=== PATIENT | male | born 1980 | race Two or more races ===

== ENCOUNTER 2020-07-30 12:09 | Inpatient (IN) | payer BC ==
[~2020-07-30] VITALS: Ht 175.3 cm; Wt 143.4 kg
[~2020-07-30 12:09] MED LIST: MORPHINE SULFATE 4 MG/ML VIAL. IV PRN
[2020-07-30 12:25] VITALS: BP 137/80
[2020-07-30] MEDS ORDERED: AMLO-187 PO (12:47)
[2020-07-30] MEDS ORDERED: APIX2.5T PO (12:47)
[2020-07-30] MEDS ORDERED: ACET500T68 PO (12:48)
[2020-07-30 15:00] VITALS: BP 155/69
[2020-07-30] MEDS ORDERED: MORPHINE SULFATE 2 MG/ML VIAL. IV PRN (15:45)
[2020-07-30] MEDS ORDERED: SENNOSIDES 8.6 MG TABLET PO PRN (15:45)
[2020-07-30] MEDS ORDERED: HYDROcodone/APAP 5/325MG 1 TAB TABLET PO PRN (15:45)
[2020-07-30] MEDS ORDERED: ONDANSETRON PF 4 MG/2 ML VIAL. IVP PRN (15:45)
[2020-07-30] MEDS ORDERED: ACETAMINOPHEN 325 MG TABLET. PO PRN (15:45)
[2020-07-30] MEDS ORDERED: DOCUSATE SODIUM 100 MG CAPSULE. PO PRN (15:45)
[2020-07-30] MEDS ORDERED: DEXTROSE 50% 25 GM / 50ML DISP.SYRIN. IV PRN (15:45)
--- NOTE | 2020-07-30 15:50 | PDOC1 ---
History and Physical Date of Service: DOS: DATE: 07/30/20 TIME: 15:44 Chief Complaint: Chief Complain: Cellulitis History of Present Illness: HPI: Patient is a 40-year-old male with history of morbid obesity and DVT diagnosed 1 year ago and is taking Eliquis who was sent from Dr. CORTES office for left lower extremity cellulitis. Patient has been treated with doxycycline and Bactrim for at least 2 weeks and has failed. Cellulitis is gotten worse and there is warmth and redness along the entire left lower extremity. Patient also suffers from chronic lymphedema that has actually worsened after he was diagnosed with DVT. Patient is taking Eliquis and has been compliant with his medications. Denies fevers, chest pain, shortness of breath, abdominal pain, diarrhea, dysuria or open wounds. 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 Allergies: Allergies: Coded Allergies: hydrocodone (Verified Allergy, Intermediate, ibsomnia/itching, 08/30/14) Family History: Family History: Reviewed with no relevant findings Social History: Social History: Denies alcohol, tobacco or drug abuse Current Medications: Current Medications Active Scripts Active Reported Acetaminophen 500 Mg Tablet 1 Tab PO PRN Q4HRS PRN 15 Days Amlodipine Besylate 10 Mg Tablet 10 Mg PO DAILY Eliquis (Apixaban) 2.5 Mg Tablet 2.5 Mg PO BID ROS: Review of Systems Review of System REVIEW OF SYSTEMS: GENERAL: Denies weakness SKIN: No bruising, hair changes or rashes. EYES: No blurred, double or loss of vision. NOSE AND THROAT: No history of nosebleeds, hoarseness or sore throat. HEART: No history of palpitations, chest pain or shortness of breath on exertion. LUNGS: Denies cough, hemoptysis, wheezing or shortness of breath. GASTROINTESTINAL: Denies changes in appetite, nausea, vomiting, diarrhea or constipation. GENITOURINARY: No history of frequency, urgency, hesitancy or nocturia. NEUROLOGIC: Denies history of numbness, tingling, or tremor. PSYCHIATRIC: No history of panic, anxiety or depression. ENDOCRINE: No history of heat or cold intolerance, polyuria or polydipsia. EXTREMITIES: Denies joint pain, pain on walking or stiffness. Physical Exam: Vital Signs: Vital Signs Date Time Temp Pulse Resp B/P (MAP) Pulse Ox O2 Delivery O2 Flow Rate FiO2 07/30/20 15:27 Room Air 07/30/20 12:25 98.6 86 16 137/80 (99) 94 98.6 Physcial Exam: GEN: No apparent distress. Alert and oriented HEENT: Normal cephalic, atraumatic, external auditory canals are patent EYES: Extraocular muscles are intact, pupil are equally round and reactive to light and accommodation MUSCULOSKELETAL: Well developed , well nourished, good range of motion ENDOCRINE: No thyromegaly was palpated LYMPHATICS: No cervical chain or axillary nodes were noted HEMATOPOIETIC: No bruising NECK: Supple, no JVD, no thyromegaly was noted LUNGS: Clear to auscultation in all lung christie without rhonchi or wheezing HEART: RRR, S!, S2 present. Peripheral pulses intact, no obvious murmurs noted ABDOMEN: Soft, nontender. Positive bowel sounds, no organomegaly, normal bowel sounds EXTREMITIES: Without clubbing, cyanosis, or edema. Pedal pulses intact. Negative Homans sign NEUROLOGIC: Normal speech and tone. A&O x 3, moves all extremities, no obvious focal deficits PSYCHIATRIC: Normal affect, normal mood. Stable SKIN: No ulcerations or rashes, good skin turgor, no jaundice VASCULAR: Good capillary refill, neurovascular bundle appears to be intact Labs: Labs: Pending labs Images: Images Pending imaging Assessment/Plan Assessment/Plan Acute left lower extremity cellulitis, failed outpatient p.o. antibiotics Chronic lymphedema in the left lower extremity Morbid obesity Admit to medicine for further management Continue empiric IV antibiotics Pending blood cultures PT OT Lymphedema evaluation by Occupational Therapy Will hold amlodipine due to causes of peripheral edema Eliquis for DVT prophylaxis Cardiac diet Full code Discussed with RN and SW Disposition inpatient management as above Surrogate decision maker is the Justifications for Admission Other Justification Cellulitis ELEONORA DUNCAN MD Jul 30, 2020 15:49
[2020-07-30] MEDS ORDERED: VANCOMYCIN 2 GM in IV NORMAL SALINE 500ML BAG 500 ML IV ONE (16:30)
[2020-07-30 19:35] VITALS: BP 134/63
[2020-07-30] MEDS: VANCOMYCIN PER PHARMACY MC PRN (21:03)
--- NOTE | 2020-07-30 21:03 | NUR ---
Pharmacy Vancomycin Dosing Note S:Consulted to monitor and dose vancomycin started 07/30/20. O:JED MORENO is a 40 year old M with Cellulitis . Height: 5 feet, 9 inches Weight: 143.4 kg Fleming Body Weight: 70.70 Adjusted Body Weight: 99.78 Dosing Weight: Actual Other Antibiotics: LABS: Last BUN: Last Creatinine: Creatinine Clearance: 120 mL/min Last WBC: Last Procalcitonin: Tmax (past 24 hours): Microbiology: I/O: Drug Levels: Last level: on at Last dose given 07/30/20 at 0630 Vancomycin Dosing: Loading Dose: x1 Dosing Weight: Actual Target Trough: 10-20 A: Based on: WEIGHT, CRCL, INDICATION P: 1. INITIATE Vancomycin 2000 mg IV q12h 2. Follow up Trough level on 08/01/20 at 0630 3. Pharmacy will continue to monitor, follow and adjust therapy as needed. GONZALES SHEIKH [facility], 07/30/20 [id number]
[2020-07-30] MEDS: APIXABAN 2.5 MG TABLET. PO SCH (21:31)
[2020-07-30 23:19] VITALS: BP 156/80
[2020-07-31 03:12] VITALS: BP 150/72
[2020-07-31 04:48] LABS: BASO # 0.1 x10^3/uL (0.0-0.2); BASO % 1 % (0-3); EOS # 0.2 x10^3/uL (0.0-0.7); EOS % 3 % (0-3); HEMATOCRIT 35.4 % (39.0-53.0); HEMOGLOBIN 11.7 g/dL (13.0-17.5); LYMPH # 2.1 x10^3/uL (1.0-4.8); LYMPH % 27 % (24-48); MEAN CORPUSCULAR HEMOGLOBIN 26 pg (25-35); MEAN CORPUSCULAR HGB CONC 33 g/dL (31-37); MEAN CORPUSCULAR VOLUME 78 fL (79-100); MONO # 0.7 x10^3/uL (0.0-1.1); MONO % 9 % (0-9); NEUT # 4.7 x10^3/uL (1.8-7.7); NEUT % 60 % (31-73); PLATELET COUNT 440 x10^3/uL (140-400); RED BLOOD COUNT 4.53 x10^6/uL (4.30-5.70); RED CELL DISTRIBUTION WIDTH 16.7 % (11.5-14.5); WHITE BLOOD COUNT 7.8 x10^3/uL (4.0-11.0)
[2020-07-31 05:20] LABS: CALCIUM 8.5 mg/dL (8.5-10.1); CREATININE 0.9 mg/dL (0.7-1.3); GFR 94.4; MAGNESIUM 2.1 mg/dL (1.8-2.4); POTASSIUM 4.1 mmol/L (3.5-5.1)
[2020-07-31] MEDS: VANCOMYCIN 2 GM in IV NORMAL SALINE 500ML BAG 500 ML IV SCH ×2 (06:24→18:22)
[2020-07-31 07:18] VITALS: BP 155/77
[2020-07-31] MEDS: APIXABAN 2.5 MG TABLET. PO SCH ×2 (07:31→21:00)
--- NOTE | 2020-07-31 10:30 | PDOC ---
PROGRESS NOTES Date of Service: DATE: 07/31/20 TIME: 10:30 Chief Complaint Chief Complaint ssessment/Plan Assessment/Plan Acute left lower extremity cellulitis, failed outpatient p.o. antibiotics Chronic lymphedema in the left lower extremity Morbid obesity hypertension plan Admit to medicine Continue empiric IV antibiotics Pending blood cultures PT OT Lymphedema evaluation by Occupational Therapy Will hold amlodipine due to causes of peripheral edema Eliquis for DVT prophylaxis Cardiac diet Full code Discussed with RN Disposition inpatient management as above Surrogate decision maker is the History of Present Illness History of Present Illness Chief Complaint: Chief Complain: Cellulitis History of Present Illness: HPI: Patient is a 40-year-old male with history of morbid obesity and DVT diagnosed 1 year ago and is taking Eliquis who was sent from Dr. CORTES office for left lower extremity cellulitis. Patient has been treated with doxycycline and Bactrim for at least 2 weeks and has failed. Cellulitis is gotten worse and there is warmth and redness along the entire left lower extremity. Patient also suffers from chronic lymphedema that has actually worsened after he was diagnosed with DVT. Patient is taking Eliquis and has been compliant with his medications. Denies fevers, chest pain, shortness of breath, abdominal pain, diarrhea, dysuria or open wounds. 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 Past Medical History Past Medical History: Hypertension Past Surgical History: Other Additional Past Surgical Histo: testicle (as child) Additional Information: Never Smoker Alcohol Use: None Drug Use: None Allergies: Allergies: Coded Allergies: hydrocodone (Verified Allergy, Intermediate, ibsomnia/itching, 08/30/14) Family History: Family History: Reviewed with no relevant findings Social History: Social History: Denies alcohol, tobacco or drug abuse Current Medications: Current Medications Active Scripts Active Reported Acetaminophen 500 Mg Tablet 1 Tab PO PRN Q4HRS PRN 15 Days Amlodipine Besylate 10 Mg Tablet 10 Mg PO DAILY Eliquis (Apixaban) 2.5 Mg Tablet 2.5 Mg PO BID ROS: Review of Systems Review of System REVIEW OF SYSTEMS: GENERAL: Denies weakness SKIN: No bruising, hair changes or rashes. EYES: No blurred, double or loss of vision. NOSE AND THROAT: No history of nosebleeds, hoarseness or sore throat. HEART: No history of palpitations, chest pain or shortness of breath on exertion. LUNGS: Denies cough, hemoptysis, wheezing or shortness of breath. GASTROINTESTINAL: Denies changes in appetite, nausea, vomiting, diarrhea or constipation. GENITOURINARY: No history of frequency, urgency, hesitancy or nocturia. NEUROLOGIC: Denies history of numbness, tingling, or tremor. PSYCHIATRIC: No history of panic, anxiety or depression. ENDOCRINE: No history of heat or cold intolerance, polyuria or polydipsia. EXTREMITIES: Denies joint pain, pain on walking or stiffness. Vitals Vitals Vital Signs Date Time Temp Pulse Resp B/P (MAP) Pulse Ox O2 Delivery O2 Flow Rate FiO2 07/31/20 07:33 Room Air 07/31/20 07:18 98.2 71 18 155/77 (103) 94 98.2 Physical Exam Physical Exam Physcial Exam: GEN: No apparent distress. Alert and oriented HEENT: Normal cephalic, atraumatic, external auditory canals are patent EYES: Extraocular muscles are intact, pupil are equally round and reactive to light and accommodation MUSCULOSKELETAL: Well developed , well nourished, good range of motion ENDOCRINE: No thyromegaly was palpated LYMPHATICS: No cervical chain or axillary nodes were noted HEMATOPOIETIC: No bruising NECK: Supple, no JVD, no thyromegaly was noted LUNGS: Clear to auscultation in all lung christie without rhonchi or wheezing HEART: RRR, S!, S2 present. Peripheral pulses intact, no obvious murmurs noted ABDOMEN: Soft, nontender. Positive bowel sounds, no organomegaly, normal bowel sounds EXTREMITIES: left lower leg cellulitis Negative Homans sign NEUROLOGIC: Normal speech and tone. A&O x 3, moves all extremities, no obvious focal deficits PSYCHIATRIC: Normal affect, normal mood. Stable SKIN: No ulcerations or rashes, good skin turgor, no jaundice VASCULAR: Good capillary refill, neurovascular bundle appears to be intact General: Alert, Oriented X3, Cooperative, No acute distress Heart: Regular rate Lungs: Clear Abdomen: Normal bowel sounds, Soft, No hepatosplenomegaly Extremities: No cyanosis Labs LABS EXAM: Bilateral lower extremity venous Doppler sonogram. HISTORY: Pain and swelling. TECHNIQUE: Portillo scale and color Doppler sonographic evaluation of the bilateral lower extremity veins with spectral waveform analysis was performed. FINDINGS: There is normal color flow, normal compressibility and there are normal spectral waveforms in the common femoral, superficial femoral, popliteal, posterior tibial and greater saphenous veins. There is left lower extremity soft tissue edema. There are prominent lymph nodes within the left inguinal region, the largest of which measures greater than 7.0 cm in long axis. There is relatively slow venous flow within the right popliteal vein. Evaluation for is reflux was not performed. IMPRESSION: 1. No Doppler evidence of lower extremity deep venous thrombosis. 2. Left inguinal lymphadenopathy. Given left lower extremity soft tissue edema, this may be reactive in the setting of cellulitis. Electronically signed by: Bessie Martinez MD (07/31/2020 10:25 AM) [id number] DICTATED and SIGNED BY: BESSIE MARTINEZ MD DATE: 07/31/20 [id number] Laboratory Tests Test 07/31/20 04:00 White Blood Count 7.8 x10^3/uL (4.0-11.0) Red Blood Count 4.53 x10^6/uL (4.30-5.70) Hemoglobin 11.7 g/dL (13.0-17.5) Hematocrit 35.4 % (39.0-53.0) Mean Corpuscular Volume 78 fL (79-100) Mean Corpuscular Hemoglobin 26 pg (25-35) Mean Corpuscular Hemoglobin Concent 33 g/dL (31-37) Red Cell Distribution Width 16.7 % (11.5-14.5) Platelet Count 440 x10^3/uL (140-400) Neutrophils (%) (Auto) 60 % (31-73) Lymphocytes (%) (Auto) 27 % (24-48) Monocytes (%) (Auto) 9 % (0-9) Eosinophils (%) (Auto) 3 % (0-3) Basophils (%) (Auto) 1 % (0-3) Neutrophils # (Auto) 4.7 x10^3/uL (1.8-7.7) Lymphocytes # (Auto) 2.1 x10^3/uL (1.0-4.8) Monocytes # (Auto) 0.7 x10^3/uL (0.0-1.1) Eosinophils # (Auto) 0.2 x10^3/uL (0.0-0.7) Basophils # (Auto) 0.1 x10^3/uL (0.0-0.2) Sodium Level 136 mmol/L (136-145) Potassium Level 4.1 mmol/L (3.5-5.1) Chloride Level 103 mmol/L (98-107) Carbon Dioxide Level 27 mmol/L (21-32) Anion Gap 6 (6-14) Blood Urea Nitrogen 12 mg/dL (8-26) Creatinine 0.9 mg/dL (0.7-1.3) Estimated GFR (Cockcroft-Gault) 94.4 Glucose Level 99 mg/dL (70-99) Calcium Level 8.5 mg/dL (8.5-10.1) Phosphorus Level 5.0 mg/dL (2.6-4.7) Magnesium Level 2.1 mg/dL (1.8-2.4) Comment Review of Relevant I have reviewed the following items lucio (where applicable) has been applied. Labs Laboratory Tests Test 07/31/20 04:00 White Blood Count 7.8 x10^3/uL (4.0-11.0) Red Blood Count 4.53 x10^6/uL (4.30-5.70) Hemoglobin 11.7 g/dL (13.0-17.5) Hematocrit 35.4 % (39.0-53.0) Mean Corpuscular Volume 78 fL (79-100) Mean Corpuscular Hemoglobin 26 pg (25-35) Mean Corpuscular Hemoglobin Concent 33 g/dL (31-37) Red Cell Distribution Width 16.7 % (11.5-14.5) Platelet Count 440 x10^3/uL (140-400) Neutrophils (%) (Auto) 60 % (31-73) Lymphocytes (%) (Auto) 27 % (24-48) Monocytes (%) (Auto) 9 % (0-9) Eosinophils (%) (Auto) 3 % (0-3) Basophils (%) (Auto) 1 % (0-3) Neutrophils # (Auto) 4.7 x10^3/uL (1.8-7.7) Lymphocytes # (Auto) 2.1 x10^3/uL (1.0-4.8) Monocytes # (Auto) 0.7 x10^3/uL (0.0-1.1) Eosinophils # (Auto) 0.2 x10^3/uL (0.0-0.7) Basophils # (Auto) 0.1 x10^3/uL (0.0-0.2) Sodium Level 136 mmol/L (136-145) Potassium Level 4.1 mmol/L (3.5-5.1) Chloride Level 103 mmol/L (98-107) Carbon Dioxide Level 27 mmol/L (21-32) Anion Gap 6 (6-14) Blood Urea Nitrogen 12 mg/dL (8-26) Creatinine 0.9 mg/dL (0.7-1.3) Estimated GFR (Cockcroft-Gault) 94.4 Glucose Level 99 mg/dL (70-99) Calcium Level 8.5 mg/dL (8.5-10.1) Phosphorus Level 5.0 mg/dL (2.6-4.7) Magnesium Level 2.1 mg/dL (1.8-2.4) Laboratory Tests Test 07/31/20 04:00 White Blood Count 7.8 x10^3/uL (4.0-11.0) Red Blood Count 4.53 x10^6/uL (4.30-5.70) Hemoglobin 11.7 g/dL (13.0-17.5) Hematocrit 35.4 % (39.0-53.0) Mean Corpuscular Volume 78 fL (79-100) Mean Corpuscular Hemoglobin 26 pg (25-35) Mean Corpuscular Hemoglobin Concent 33 g/dL (31-37) Red Cell Distribution Width 16.7 % (11.5-14.5) Platelet Count 440 x10^3/uL (140-400) Neutrophils (%) (Auto) 60 % (31-73) Lymphocytes (%) (Auto) 27 % (24-48) Monocytes (%) (Auto) 9 % (0-9) Eosinophils (%) (Auto) 3 % (0-3) Basophils (%) (Auto) 1 % (0-3) Neutrophils # (Auto) 4.7 x10^3/uL (1.8-7.7) Lymphocytes # (Auto) 2.1 x10^3/uL (1.0-4.8) Monocytes # (Auto) 0.7 x10^3/uL (0.0-1.1) Eosinophils # (Auto) 0.2 x10^3/uL (0.0-0.7) Basophils # (Auto) 0.1 x10^3/uL (0.0-0.2) Sodium Level 136 mmol/L (136-145) Potassium Level 4.1 mmol/L (3.5-5.1) Chloride Level 103 mmol/L (98-107) Carbon Dioxide Level 27 mmol/L (21-32) Anion Gap 6 (6-14) Blood Urea Nitrogen 12 mg/dL (8-26) Creatinine 0.9 mg/dL (0.7-1.3) Estimated GFR (Cockcroft-Gault) 94.4 Glucose Level 99 mg/dL (70-99) Calcium Level 8.5 mg/dL (8.5-10.1) Phosphorus Level 5.0 mg/dL (2.6-4.7) Magnesium Level 2.1 mg/dL (1.8-2.4) Medications Current Medications Sennosides (Senna) 17.2 mg PRN BID PRN PO CONSTIPATION; Start 07/30/20 at 15:45 Docusate Sodium (Colace) 100 mg PRN DAILY PRN PO HARD STOOLS; Start 07/30/20 at 15:45 Ondansetron HCl (Zofran) 4 mg PRN Q6HRS PRN IVP NAUSEA/VOMITING; Start 07/30/20 at 15:45 Dextrose (Dextrose 50%-Water Syringe) 12.5 gm PRN Q15MIN PRN IV SEE COMMENTS; Start 07/30/20 at 15:45 Acetaminophen (Tylenol) 650 mg PRN Q4HRS PRN PO TEMP OVER 100.4F OR MILD PAIN; Start 07/30/20 at 15:45 Vancomycin HCl (Vanco Per Pharmacy) 1 each PRN DAILY PRN MC SEE COMMENTS Last administered on 07/30/20at 21:03; Start 07/30/20 at 15:45 Acetaminophen/ Hydrocodone Bitart (Lortab 5/325) 1 tab PRN Q4HRS PRN PO MILD PAIN 1-3; Start 07/30/20 at 15:45 Morphine Sulfate (Morphine Sulfate) 1 mg PRN Q1HR PRN IV PAIN MILD TO MOD; Start 07/30/20 at 15:45 Morphine Sulfate (Morphine Sulfate) 2 mg PRN Q2HR PRN IV SEVERE PAIN 7-10; Start 07/30/20 at 04:00; Stop 07/31/20 at 03:59; Status DC Vancomycin HCl 2 gm/Sodium Chloride 500 ml @ 250 mls/hr 1X ONCE IV Last administered on 07/30/20at 18:57; Start 07/30/20 at 16:30; Stop 07/30/20 at 18:29; Status DC Apixaban (Eliquis) 2.5 mg BID PO Last administered on 07/31/20at 07:31; Start 07/30/20 at 21:00 Info (Anti-Coagulation Monitoring By Pharmacy) 1 each PRN DAILY PRN MC SEE COMMENTS; Start 07/30/20 at 16:00 Vancomycin HCl 2 gm/Sodium Chloride 500 ml @ 250 mls/hr Q12H IV Last administered on 07/31/20at 06:24; Start 07/31/20 at 07:00 Vancomycin HCl (Vancomycin Trough Level) 1 each 1X ONCE MC ; Start 08/01/20 at 06:30; Stop 08/01/20 at 06:31 Active Scripts Active Reported Acetaminophen 500 Mg Tablet 1 Tab PO PRN Q4HRS PRN 15 Days Amlodipine Besylate 10 Mg Tablet 10 Mg PO DAILY Eliquis (Apixaban) 2.5 Mg Tablet 2.5 Mg PO BID Vitals/I & O Vital Sign - Last 24 Hours 07/30/20 07/30/20 07/30/20 07/30/20 12:25 15:00 15:27 19:35 Temp 98.6 98.0 99.8 98.6 98.0 99.8 Pulse 86 78 84 Resp 16 18 18 B/P (MAP) 137/80 (99) 155/69 (97) 134/63 (86) Pulse Ox 94 96 93 O2 Delivery Room Air Room Air Room Air Room Air 07/30/20 07/30/20 07/31/20 07/31/20 19:45 23:19 03:12 07:18 Temp 99.4 98.2 98.2 99.4 98.2 98.2 Pulse 81 61 71 Resp 18 18 18 B/P (MAP) 156/80 (105) 150/72 (98) 155/77 (103) Pulse Ox 91 94 94 O2 Delivery Room Air Room Air Room Air Room Air 07/31/20 07:33 O2 Delivery Room Air Intake and Output 07/30/20 07/30/20 07/31/20 15:00 23:00 07:00 Intake Total 240 ml 360 ml Balance 240 ml 360 ml Justicifation of Admission Dx: Justifications for Admission: Justification of Admission Dx: Yes Cellulitis: Cellulitis DENISSE TOMLIN MD Jul 31, 2020 10:30
[2020-07-31 11:00] VITALS: BP 166/78
[2020-07-31] MEDS: ANTI-COAG MONITOR BY PHARMACY. MC PRN (14:20)
[2020-07-31] MEDS: VANCOMYCIN PER PHARMACY MC PRN (14:26)
[2020-07-31 15:00] VITALS: BP 157/55
[2020-07-31] MEDS: LISINOPRIL 5 MG TABLET. PO SCH (18:22)
[2020-07-31 19:54] VITALS: BP 161/73
[2020-07-31 23:55] VITALS: BP 160/74
[2020-08-01 03:15] VITALS: BP 160/79
[2020-08-01] MEDS: VANCOMYCIN 2 GM in IV NORMAL SALINE 500ML BAG 500 ML IV SCH ×2 (06:07→21:03)
[2020-08-01 07:00] VITALS: BP 153/93
[2020-08-01] MEDS: LISINOPRIL 5 MG TABLET. PO SCH ×2 (07:49→16:36)
[2020-08-01] MEDS: APIXABAN 2.5 MG TABLET. PO SCH ×2 (07:49→20:41)
[2020-08-01 08:05] LABS: BASO % 1 % (0-3); EOS # 0.2 x10^3/uL (0.0-0.7); EOS % 3 % (0-3); HEMATOCRIT 35.5 % (39.0-53.0); HEMOGLOBIN 11.6 g/dL (13.0-17.5); LYMPH # 1.6 x10^3/uL (1.0-4.8); LYMPH % 22 % (24-48); MEAN CORPUSCULAR HEMOGLOBIN 26 pg (25-35); MEAN CORPUSCULAR HGB CONC 33 g/dL (31-37); MEAN CORPUSCULAR VOLUME 78 fL (79-100); MONO # 0.4 x10^3/uL (0.0-1.1); MONO % 6 % (0-9); NEUT % 68 % (31-73); PLATELET COUNT 452 x10^3/uL (140-400); RED BLOOD COUNT 4.53 x10^6/uL (4.30-5.70); RED CELL DISTRIBUTION WIDTH 16.8 % (11.5-14.5); WHITE BLOOD COUNT 7.3 x10^3/uL (4.0-11.0)
[2020-08-01 08:25] LABS: CALCIUM 8.8 mg/dL (8.5-10.1); CREATININE 0.7 mg/dL (0.7-1.3); GFR 126.2
[2020-08-01 08:42] LABS: VANC TR 29.6 mcg/mL (10.0-20.0)
[2020-08-01 11:00] VITALS: BP 161/85
--- NOTE | 2020-08-01 11:05 | PDOC ---
PROGRESS NOTES Date of Service: DATE: 08/01/20 TIME: 11:04 Chief Complaint Chief Complaint ssessment/Plan Assessment/Plan Acute left lower extremity cellulitis, failed outpatient p.o. antibiotics Chronic lymphedema in the left lower extremity Morbid obesity hypertension plan Admit to medicine ct left leg ID CONSULT Continue empiric IV antibiotics, VANC Pending blood cultures PT OT Lymphedema evaluation by Occupational Therapy Will hold amlodipine due to causes of peripheral edema Eliquis for DVT prophylaxis Cardiac diet Full code Discussed with RN Disposition inpatient management as above Surrogate decision maker is the History of Present Illness History of Present Illness Chief Complaint: Chief Complain: Cellulitis History of Present Illness: HPI: Patient is a 40-year-old male with history of morbid obesity and DVT diagnosed 1 year ago and is taking Eliquis who was sent from Dr. CORTES office for left lo wer extremity cellulitis. Patient has been treated with doxycycline and Bactrim for at least 2 weeks and has failed. Cellulitis is gotten worse and there is warmth and redness along the entire left lower extremity. Patient also suffers from chronic lymphedema that has actually worsened after he was diagnosed with DVT. Patient is taking Eliquis and has been compliant with his medications. Denies fevers, chest pain, shortness of breath, abdominal pain, diarrhea, dysuria or open wounds. 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 Past Medical History Past Medical History: Hypertension Past Surgical History: Other Additional Past Surgical Histo: testicle (as child) Additional Information: Never Smoker Alcohol Use: None Drug Use: None Allergies: Allergies: Coded Allergies: hydrocodone (Verified Allergy, Intermediate, ibsomnia/itching, 08/30/14) Family History: Family History: Reviewed with no relevant findings Social History: Social History: Denies alcohol, tobacco or drug abuse Current Medications: Current Medications Active Scripts Active Reported Acetaminophen 500 Mg Tablet 1 Tab PO PRN Q4HRS PRN 15 Days Amlodipine Besylate 10 Mg Tablet 10 Mg PO DAILY Eliquis (Apixaban) 2.5 Mg Tablet 2.5 Mg PO BID ROS: Review of Systems Review of System REVIEW OF SYSTEMS: GENERAL: Denies weakness SKIN: No bruising, hair changes or rashes. EYES: No blurred, double or loss of vision. NOSE AND THROAT: No history of nosebleeds, hoarseness or sore throat. HEART: No history of palpitations, chest pain or shortness of breath on exertion. LUNGS: Denies cough, hemoptysis, wheezing or shortness of breath. GASTROINTESTINAL: Denies changes in appetite, nausea, vomiting, diarrhea or constipation. GENITOURINARY: No history of frequency, urgency, hesitancy or nocturia. NEUROLOGIC: Denies history of numbness, tingling, or tremor. PSYCHIATRIC: No history of panic, anxiety or depression. ENDOCRINE: No history of heat or cold intolerance, polyuria or polydipsia. EXTREMITIES: Denies joint pain, pain on walking or stiffness. Vitals Vitals Vital Signs Date Time Temp Pulse Resp B/P (MAP) Pulse Ox O2 Delivery O2 Flow Rate FiO2 08/01/20 08:00 Room Air 08/01/20 07:49 80 153/93 08/01/20 07:00 98.8 18 92 98.8 Physical Exam Physical Exam Physcial Exam: GEN: No apparent distress. Alert and oriented HEENT: Normal cephalic, atraumatic, external auditory canals are patent EYES: Extraocular muscles are intact, pupil are equally round and reactive to light and accommodation MUSCULOSKELETAL: Well developed , well nourished, good range of motion ENDOCRINE: No thyromegaly was palpated LYMPHATICS: No cervical chain or axillary nodes were noted HEMATOPOIETIC: No bruising NECK: Supple, no JVD, no thyromegaly was noted LUNGS: Clear to auscultation in all lung christie without rhonchi or wheezing HEART: RRR, S!, S2 present. Peripheral pulses intact, no obvious murmurs noted ABDOMEN: Soft, nontender. Positive bowel sounds, no organomegaly, normal bowel sounds EXTREMITIES: left lower leg cellulitis Negative Homans sign NEUROLOGIC: Normal speech and tone. A&O x 3, moves all extremities, no obvious focal deficits PSYCHIATRIC: Normal affect, normal mood. Stable SKIN: No ulcerations or rashes, good skin turgor, no jaundice VASCULAR: Good capillary refill, neurovascular bundle appears to be intact General: Alert, Oriented X3, Cooperative, No acute distress Heart: Regular rate Lungs: Clear Abdomen: Normal bowel sounds, Soft, No hepatosplenomegaly Extremities: No cyanosis, Other (MODERATE DIFFUSE ST SWELLING OF WHOLE LEFT LEG) Labs LABS SPEC #: [id number] HARVEY: 07/31/20 STATUS: RES REQ #: [id number] RECD: 07/31/[address] [facility] [address]: ELEONORA DUNCAN MD SOURCE: BLOOD ENTR: 07/30/20-[address] [facility] [address]: JAYY CORTES [facility]: ORDERED: BCULT Procedure Result BLOOD CULTURE Preliminary NO GROWTH AFTER 1 DAY Signed PATIENT: JED MORENO ACCOUNT: [id number] : 1980 LOCATION: [facility] AGE: 40 SEX: M EXAM STATUS: ADM IN ORD. PHYSICIAN: ELEONORA DUNCAN MD REASON: dvt and swelling PROCEDURE: VENOUS LOWER EXT BILATERAL EXAM: Bilateral lower extremity venous Doppler sonogram. HISTORY: Pain and swelling. TECHNIQUE: Portillo scale and color Doppler sonographic evaluation of the bilateral lower extremity veins with spectral waveform analysis was performed. FINDINGS: There is normal color flow, normal compressibility and there are normal spectral waveforms in the common femoral, superficial femoral, popliteal, posterior tibial and greater saphenous veins. There is left lower extremity soft tissue edema. There are prominent lymph nodes within the left inguinal region, the largest of which measures greater than 7.0 cm in long axis. There is relatively slow venous flow within the right popliteal vein. Evaluation for is reflux was not performed. IMPRESSION: 1. No Doppler evidence of lower extremity deep venous thrombosis. 2. Left inguinal lymphadenopathy. Given left lower extremity soft tissue edema, this may be reactive in the setting of cellulitis. Electronically signed by: Bessie Martinez MD (07/31/2020 10:25 AM) [id number] DICTATED and SIGNED BY: BESSIE MARTINEZ MD DATE: 07/31/20 [id number] Laboratory Tests Test 08/01/20 06:45 08/01/20 06:48 Sodium Level 136 mmol/L (136-145) Potassium Level 4.0 mmol/L (3.5-5.1) Chloride Level 101 mmol/L (98-107) Carbon Dioxide Level 27 mmol/L (21-32) Anion Gap 8 (6-14) Blood Urea Nitrogen 9 mg/dL (8-26) Creatinine 0.7 mg/dL (0.7-1.3) Estimated GFR (Cockcroft-Gault) 126.2 Glucose Level 95 mg/dL (70-99) Calcium Level 8.8 mg/dL (8.5-10.1) Vancomycin Level Trough 29.6 mcg/mL (10.0-20.0) Vancomycin Last Dose Date 07/31/20 Vancomycin Last Dose Time 1900 White Blood Count 7.3 x10^3/uL (4.0-11.0) Red Blood Count 4.53 x10^6/uL (4.30-5.70) Hemoglobin 11.6 g/dL (13.0-17.5) Hematocrit 35.5 % (39.0-53.0) Mean Corpuscular Volume 78 fL (79-100) Mean Corpuscular Hemoglobin 26 pg (25-35) Mean Corpuscular Hemoglobin Concent 33 g/dL (31-37) Red Cell Distribution Width 16.8 % (11.5-14.5) Platelet Count 452 x10^3/uL (140-400) Neutrophils (%) (Auto) 68 % (31-73) Lymphocytes (%) (Auto) 22 % (24-48) Monocytes (%) (Auto) 6 % (0-9) Eosinophils (%) (Auto) 3 % (0-3) Basophils (%) (Auto) 1 % (0-3) Neutrophils # (Auto) 5.0 x10^3/uL (1.8-7.7) Lymphocytes # (Auto) 1.6 x10^3/uL (1.0-4.8) Monocytes # (Auto) 0.4 x10^3/uL (0.0-1.1) Eosinophils # (Auto) 0.2 x10^3/uL (0.0-0.7) Basophils # (Auto) 0.0 x10^3/uL (0.0-0.2) Comment Review of Relevant I have reviewed the following items lucio (where applicable) has been applied. Labs Laboratory Tests Test 07/31/20 04:00 08/01/20 06:45 08/01/20 06:48 White Blood Count 7.8 x10^3/uL (4.0-11.0) 7.3 x10^3/uL (4.0-11.0) Red Blood Count 4.53 x10^6/uL (4.30-5.70) 4.53 x10^6/uL (4.30-5.70) Hemoglobin 11.7 g/dL (13.0-17.5) 11.6 g/dL (13.0-17.5) Hematocrit 35.4 % (39.0-53.0) 35.5 % (39.0-53.0) Mean Corpuscular Volume 78 fL (79-100) 78 fL (79-100) Mean Corpuscular Hemoglobin 26 pg (25-35) 26 pg (25-35) Mean Corpuscular Hemoglobin Concent 33 g/dL (31-37) 33 g/dL (31-37) Red Cell Distribution Width 16.7 % (11.5-14.5) 16.8 % (11.5-14.5) Platelet Count 440 x10^3/uL (140-400) 452 x10^3/uL (140-400) Neutrophils (%) (Auto) 60 % (31-73) 68 % (31-73) Lymphocytes (%) (Auto) 27 % (24-48) 22 % (24-48) Monocytes (%) (Auto) 9 % (0-9) 6 % (0-9) Eosinophils (%) (Auto) 3 % (0-3) 3 % (0-3) Basophils (%) (Auto) 1 % (0-3) 1 % (0-3) Neutrophils # (Auto) 4.7 x10^3/uL (1.8-7.7) 5.0 x10^3/uL (1.8-7.7) Lymphocytes # (Auto) 2.1 x10^3/uL (1.0-4.8) 1.6 x10^3/uL (1.0-4.8) Monocytes # (Auto) 0.7 x10^3/uL (0.0-1.1) 0.4 x10^3/uL (0.0-1.1) Eosinophils # (Auto) 0.2 x10^3/uL (0.0-0.7) 0.2 x10^3/uL (0.0-0.7) Basophils # (Auto) 0.1 x10^3/uL (0.0-0.2) 0.0 x10^3/uL (0.0-0.2) Sodium Level 136 mmol/L (136-145) 136 mmol/L (136-145) Potassium Level 4.1 mmol/L (3.5-5.1) 4.0 mmol/L (3.5-5.1) Chloride Level 103 mmol/L (98-107) 101 mmol/L (98-107) Carbon Dioxide Level 27 mmol/L (21-32) 27 mmol/L (21-32) Anion Gap 6 (6-14) 8 (6-14) Blood Urea Nitrogen 12 mg/dL (8-26) 9 mg/dL (8-26) Creatinine 0.9 mg/dL (0.7-1.3) 0.7 mg/dL (0.7-1.3) Estimated GFR (Cockcroft-Gault) 94.4 126.2 Glucose Level 99 mg/dL (70-99) 95 mg/dL (70-99) Calcium Level 8.5 mg/dL (8.5-10.1) 8.8 mg/dL (8.5-10.1) Phosphorus Level 5.0 mg/dL (2.6-4.7) Magnesium Level 2.1 mg/dL (1.8-2.4) Vancomycin Level Trough 29.6 mcg/mL (10.0-20.0) Vancomycin Last Dose Date 07/31/20 Vancomycin Last Dose Time 190 Laboratory Tests Test 08/01/20 06:45 08/01/20 06:48 Sodium Level 136 mmol/L (136-145) Potassium Level 4.0 mmol/L (3.5-5.1) Chloride Level 101 mmol/L (98-107) Carbon Dioxide Level 27 mmol/L (21-32) Anion Gap 8 (6-14) Blood Urea Nitrogen 9 mg/dL (8-26) Creatinine 0.7 mg/dL (0.7-1.3) Estimated GFR (Cockcroft-Gault) 126.2 Glucose Level 95 mg/dL (70-99) Calcium Level 8.8 mg/dL (8.5-10.1) Vancomycin Level Trough 29.6 mcg/mL (10.0-20.0) Vancomycin Last Dose Date 07/31/20 Vancomycin Last Dose Time 190 White Blood Count 7.3 x10^3/uL (4.0-11.0) Red Blood Count 4.53 x10^6/uL (4.30-5.70) Hemoglobin 11.6 g/dL (13.0-17.5) Hematocrit 35.5 % (39.0-53.0) Mean Corpuscular Volume 78 fL (79-100) Mean Corpuscular Hemoglobin 26 pg (25-35) Mean Corpuscular Hemoglobin Concent 33 g/dL (31-37) Red Cell Distribution Width 16.8 % (11.5-14.5) Platelet Count 452 x10^3/uL (140-400) Neutrophils (%) (Auto) 68 % (31-73) Lymphocytes (%) (Auto) 22 % (24-48) Monocytes (%) (Auto) 6 % (0-9) Eosinophils (%) (Auto) 3 % (0-3) Basophils (%) (Auto) 1 % (0-3) Neutrophils # (Auto) 5.0 x10^3/uL (1.8-7.7) Lymphocytes # (Auto) 1.6 x10^3/uL (1.0-4.8) Monocytes # (Auto) 0.4 x10^3/uL (0.0-1.1) Eosinophils # (Auto) 0.2 x10^3/uL (0.0-0.7) Basophils # (Auto) 0.0 x10^3/uL (0.0-0.2) Microbiology 07/31/20 Blood Culture - Preliminary, Resulted NO GROWTH AFTER 1 DAY Medications Current Medications Sennosides (Senna) 17.2 mg PRN BID PRN PO CONSTIPATION; Start 07/30/20 at 15:45 Docusate Sodium (Colace) 100 mg PRN DAILY PRN PO HARD STOOLS; Start 07/30/20 at 15:45 Ondansetron HCl (Zofran) 4 mg PRN Q6HRS PRN IVP NAUSEA/VOMITING; Start 07/30/20 at 15:45 Dextrose (Dextrose 50%-Water Syringe) 12.5 gm PRN Q15MIN PRN IV SEE COMMENTS; Start 07/30/20 at 15:45 Acetaminophen (Tylenol) 650 mg PRN Q4HRS PRN PO TEMP OVER 100.4F OR MILD PAIN; Start 07/30/20 at 15:45 Vancomycin HCl (Vanco Per Pharmacy) 1 each PRN DAILY PRN MC SEE COMMENTS Last administered on 07/31/20at 14:26; Start 07/30/20 at 15:45 Acetaminophen/ Hydrocodone Bitart (Lortab 5/325) 1 tab PRN Q4HRS PRN PO MILD PAIN 1-3; Start 07/30/20 at 15:45 Morphine Sulfate (Morphine Sulfate) 1 mg PRN Q1HR PRN IV PAIN MILD TO MOD; Start 07/30/20 at 15:45 Morphine Sulfate (Morphine Sulfate) 2 mg PRN Q2HR PRN IV SEVERE PAIN 7-10; Start 07/30/20 at 04:00; Stop 07/31/20 at 03:59; Status DC Vancomycin HCl 2 gm/Sodium Chloride 500 ml @ 250 mls/hr 1X ONCE IV Last administered on 07/30/20at 18:57; Start 07/30/20 at 16:30; Stop 07/30/20 at 18:29; Status DC Apixaban (Eliquis) 2.5 mg BID PO Last administered on 08/01/20at 07:49; Start 07/30/20 at 21:00 Info (Anti-Coagulation Monitoring By Pharmacy) 1 each PRN DAILY PRN MC SEE COMMENTS Last administered on 07/31/20at 14:20; Start 07/30/20 at 16:00 Vancomycin HCl 2 gm/Sodium Chloride 500 ml @ 250 mls/hr Q12H IV Last administered on 08/01/20at 06:07; Start 07/31/20 at 07:00 Vancomycin HCl (Vancomycin Trough Level) 1 each 1X ONCE MC Last administered on 08/01/20at 06:30; Start 08/01/20 at 06:30; Stop 08/01/20 at 06:31; Status DC Lisinopril (Prinivil) 2.5 mg [id number] PO Last administered on 08/01/20at 07:49; Start 07/31/20 at 16:30 Active Scripts Active Reported Acetaminophen 500 Mg Tablet 1 Tab PO PRN Q4HRS PRN 15 Days Amlodipine Besylate 10 Mg Tablet 10 Mg PO DAILY Eliquis (Apixaban) 2.5 Mg Tablet 2.5 Mg PO BID Vitals/I & O Vital Sign - Last 24 Hours 07/31/20 07/31/20 07/31/20 07/31/20 15:00 18:22 19:54 20:00 Temp 98.2 96.6 98.2 96.6 Pulse 77 77 82 Resp 18 20 B/P (MAP) 157/55 (89) 157/55 161/73 (102) Pulse Ox 94 93 O2 Delivery Room Air Room Air Room Air 07/31/20 08/01/20 08/01/20 08/01/20 23:55 03:15 07:00 07:49 Temp 96.4 99.0 98.8 96.4 99.0 98.8 Pulse 74 76 80 80 Resp 20 18 18 B/P (MAP) 160/74 (102) 160/79 (106) 153/93 (113) 153/93 Pulse Ox 88 90 92 O2 Delivery Room Air Room Air Room Air 08/01/20 08:00 O2 Delivery Room Air Intake and Output 07/31/20 07/31/20 08/01/20 15:00 23:00 07:00 Intake Total 400 ml 400 ml Balance 400 ml 400 ml Justicifation of Admission Dx: Justifications for Admission: Justification of Admission Dx: Yes Cellulitis: Cellulitis DENISSE TOMLIN MD Aug 01, 2020 11:05
[2020-08-01] MEDS: VANCOMYCIN PER PHARMACY MC PRN ×3 (11:54→20:07)
[2020-08-01] MEDS: ANTI-COAG MONITOR BY PHARMACY. MC PRN (12:09)
[2020-08-01 15:00] VITALS: BP 142/74
[2020-08-01] MEDS ORDERED: ACETAMINOPHEN 500 MG TABLET PO PRN (17:30)
[2020-08-01] MEDS: amLODIPine BESYLATE 10 MG TABLET PO SCH (17:35)
--- NOTE | 2020-08-01 17:35 | NUR ---
Norvasc non-admin Lisinopril given 1 hour prior to scheduled time.
[2020-08-01 19:00] VITALS: BP 156/80
[2020-08-01 19:27] LABS: VANC TR 12.4 mcg/mL (10.0-20.0)
--- NOTE | 2020-08-01 20:07 | NUR ---
Pharmacy Vancomycin Dosing Note S:Consulted to monitor and dose vancomycin started 07/30/20. O:JED MORENO is a 40 year old M with Cellulitis . Height: 5 feet, 9 inches Weight: 143.4 kg [place] Body Weight: 70.70 Adjusted Body Weight: 99.78 Dosing Weight: Actual Other Antibiotics: LABS: Last BUN: 12 Last Creatinine: 0.9 Creatinine Clearance: >100 mL/min Last WBC: 7.8 Last Procalcitonin: Tmax (past 24 hours): 99.4 Microbiology: I/O: 600/- Drug Levels: Last Trough level: 12.4 on 08/01/20 at 1835 Last dose given 08/01/20 at 0607 Vancomycin Dosing: Loading Dose: x1 Dosing Weight: Actual Target Trough: 10-20 A: Based on: THERAPEUTIC TROUGH FOR INDICATION, P: 1. CONTINUE Vancomycin 2000 mg IV q12h 2. Follow up Trough level NEEDED 3. Pharmacy will continue to monitor, follow and adjust therapy as needed. GONZALES SHEIKH [facility], 08/01/202006
[2020-08-01] MEDS: LACTOBACILLUS RHAMNOSUS GG 1 CAPSULE. PO SCH (20:41)
[2020-08-01 23:00] VITALS: BP 149/67
[2020-08-02 03:00] VITALS: BP 157/71
[2020-08-02] MEDS: VANCOMYCIN 2 GM in IV NORMAL SALINE 500ML BAG 500 ML IV SCH (05:43)
[2020-08-02 07:21] VITALS: BP 165/76
[2020-08-02 07:40] LABS: BASO % 0 % (0-3); EOS # 0.2 x10^3/uL (0.0-0.7); EOS % 3 % (0-3); HEMATOCRIT 35.8 % (39.0-53.0); HEMOGLOBIN 11.7 g/dL (13.0-17.5); LYMPH # 1.6 x10^3/uL (1.0-4.8); LYMPH % 22 % (24-48); MEAN CORPUSCULAR HEMOGLOBIN 26 pg (25-35); MEAN CORPUSCULAR HGB CONC 33 g/dL (31-37); MEAN CORPUSCULAR VOLUME 78 fL (79-100); MONO # 0.4 x10^3/uL (0.0-1.1); MONO % 6 % (0-9); NEUT # 5.2 x10^3/uL (1.8-7.7); NEUT % 70 % (31-73); PLATELET COUNT 428 x10^3/uL (140-400); RED CELL DISTRIBUTION WIDTH 16.6 % (11.5-14.5); WHITE BLOOD COUNT 7.5 x10^3/uL (4.0-11.0)
[2020-08-02] MEDS ORDERED: IOHEXOL 240 MG/ML 50ML VIAL. PO ONE (08:00)
[2020-08-02] MEDS ORDERED: CONTRAST GIVEN. MC PRN (08:00)
[2020-08-02] MEDS: LISINOPRIL 5 MG TABLET. PO SCH ×2 (09:00→17:09)
[2020-08-02] MEDS: LACTOBACILLUS RHAMNOSUS GG 1 CAPSULE. PO SCH ×2 (09:00→20:20)
[2020-08-02] MEDS: APIXABAN 2.5 MG TABLET. PO SCH ×2 (09:00→20:20)
[2020-08-02] MEDS: amLODIPine BESYLATE 10 MG TABLET PO SCH (09:00)
--- NOTE | 2020-08-02 10:33 | RAD ---
EXAM: CT Abdomen and Pelvis without IV contrast INDICATION: Reason: LEFT LEG SWELLING / Spl. Instructions: / History: TECHNIQUE: Multi-detector row CT images were acquired from the lung bases through the abdomen and pel vis without the use of IV contrast. Sagittal and coronal images were acquired from the transaxial shanel a. All CT scans performed at this facility utilize dose optimization techniques as appropriate to the exam, including the following: Automated exposure control and adjustment of the mA and/or KV accordi ng to patient size (this includes techniques or standardized protocols for targeted exams where dose is indication/reason for exam). ORAL CONTRAST: Administered COMPARISON: CT left lower extremity without IV contrast obtained the same day FINDINGS: The absence of IV contrast limits evaluation of soft tissue pathology. LOWER CHEST: Unremarkable LIVER: Unremarkable BILIARY SYSTEM: Gallbladder is unremarkable. Bile ducts are not dilated. PANCREAS: Unremarkable SPLEEN: Unremarkable ADRENALS: Unremarkable KIDNEYS & URETERS: Bilateral subtle perirenal soft tissue stranding is present without hydronephrosi s or hydroureter. No radiopaque kidney stones. BLADDER: Unremarkable REPRODUCTIVE ORGANS: Unremarkable GASTROINTESTINAL: Oral contrast opacifies the small bowel but does not opacify the large bowel the ti me of imaging. There is rectal fecal distention to transverse diameter of 6.5 cm. The appendix is nor mal. MESENTERY/PERITONEUM/RETROPERITONEUM: Unremarkable VASCULAR: Unremarkable LYMPH NODES: A 4 cm left external iliac lymph node is present with soft tissue stranding in its fatt y hilum. Additional enlarged left superficial and deep inguinal lymph nodes are present, associated w ith soft tissue stranding and skin thickening in the partially visualized proximal left thigh. OSSEOUS & SOFT TISSUES: No acute osseous abnormality. Acute inflammatory changes in the proximal lef t thigh are partially imaged. There are some prominent superficial varices along the left abdominal w all from the femoral veins to the internal mammary and lower left intercostal veins. IMPRESSION: Left lower extremity and pelvic adenopathy with findings of cellulitis in the proximal partially imag ed left thigh. No central obstructing mass to explain left leg swelling. EXAM: CT left lower extremity INDICATION: Reason: LEFT LEG SWELLING / Spl. Instructions: / History: TECHNIQUE: Helical CT of the leg from the top of the left acetabulum through the left foot was obtain ed without IV contrast and reviewed in multiplanar reformats. All CT scans performed at this facility utilize dose optimization techniques as appropriate to the exam, including the following: Automated exposure control and adjustment of the mA and/or KV according to patient size (this includes techniqu es or standardized protocols for targeted exams where dose is indication/reason for exam). IV CONTRAST: Administered COMPARISON: None FINDINGS: Exuberant lymphadenopathy is present in the left groin, largest cluster of nodes measuring 5.7 cm felisha meter long axis by 2.8 cm short axis. There is exuberant soft tissue stranding and skin thickening in the anterior left thigh. There is cassie e fluid surrounding the iliotibial band. Soft tissue stranding is circumferential calcified extends to the left foot. No abnormal soft tissue gas There is a joint effusion with multiple loose bodies in the medial compartment. No acute fracture or aggressive appearing bony lesions. Tricompartmental degenerative changes with os teophytic spurring of the medial and lateral femoral condyles and on lateral tibial plateau and [place] la. No bony erosions or marrow lucencies suspicious for an intraosseous fluid collection. IMPRESSION: Exuberant cellulitis involving the entirety of the left lower extremity from foot to hip and bulky ad enopathy in the groin. No abnormal soft tissue gas that would increase the likelihood of necrotizing fasciitis but this is a clinical diagnosis and should be considered in the differential diagnosis of these findings. Electronically signed by: Elyse Lewis MD (08/02/2020 10:31 AM) [id number]
[2020-08-02 11:20] VITALS: BP 163/69
[2020-08-02 11:28] LABS: CREATININE 0.8 mg/dL (0.7-1.3); GFR 108.2
--- NOTE | 2020-08-02 11:40 | NUR ---
SW following. Discussed with RN, pt from home with family, room air, cardiac diet. Pt having a CT of abdomen. Lymphedema OT consulted. Pt can visit an outpatient lymphedema clinic after discharge, if needing further care. RN advised no SW needs at this time, anticipates pt may be able to discharge home today. SW will continue to follow.
[2020-08-02] MEDS: ANTI-COAG MONITOR BY PHARMACY. MC PRN (13:09)
--- NOTE | 2020-08-02 13:14 | PDOC ---
PROGRESS NOTES Date of Service: DATE: 08/02/20 TIME: 13:12 Chief Complaint Chief Complaint ssessment/Plan Assessment/Plan Acute left lower extremity cellulitis, failed outpatient p.o. antibiotics Chronic lymphedema in the left lower extremity Morbid obesity hypertension plan Admit to medicine ct left leg ID CONSULT Continue empiric IV antibiotics, VANC Pending blood cultures PT OT Lymphedema evaluation by Occupational Therapy Will hold amlodipine due to causes of peripheral edema Eliquis for DVT prophylaxis Cardiac diet Full code Discussed with RN Disposition inpatient management as above Surrogate decision maker is the History of Present Illness History of Present Illness Dylon is a 40-year-old male with left leg lymphedema after DVT rupture, and amdit with acute left lower extremity cellulitis. Patient has been treated with doxycycline and Bactrim for at least 2 weeks and has failed. doing better here with IV vanco, need OT lymph therapy obese, and poor lymph drainage Past Medical History: Hypertension HEART: No history of palpitations, chest pain or shortness of breath on exertion. LUNGS: Denies cough, hemoptysis, wheezing or shortness of breath. GASTROINTESTINAL: Denies changes in appetite, nausea, vomiting, diarrhea or constipation. GENITOURINARY: No history of frequency, urgency, hesitancy or nocturia. NEUROLOGIC: Denies history of numbness, tingling, or tremor. PSYCHIATRIC: No history of panic, anxiety or depression. ENDOCRINE: No history of heat or cold intolerance, polyuria or polydipsia. EXTREMITIES: Denies joint pain, pain on walking or stiffness. Vitals Vitals Vital Signs Date Time Temp Pulse Resp B/P (MAP) Pulse Ox O2 Delivery O2 Flow Rate FiO2 08/02/20 11:20 98.6 74 18 163/69 (100) 93 Room Air 98.6 Physical Exam Physical Exam Physcial Exam: GEN: No apparent distress. Alert and oriented HEENT: Normal cephalic, atraumatic, external auditory canals are patent EYES: Extraocular muscles are intact, pupil are equally round and reactive to light and accommodation MUSCULOSKELETAL: Well developed , well nourished, good range of motion ENDOCRINE: No thyromegaly was palpated LYMPHATICS: No cervical chain or axillary nodes were noted HEMATOPOIETIC: No bruising NECK: Supple, no JVD, no thyromegaly was noted LUNGS: Clear to auscultation in all lung christie without rhonchi or wheezing HEART: RRR, S!, S2 present. Peripheral pulses intact, no obvious murmurs noted ABDOMEN: Soft, nontender. Positive bowel sounds, no organomegaly, normal bowel sounds EXTREMITIES: left lower leg cellulitis Negative Homans sign NEUROLOGIC: Normal speech and tone. A&O x 3, moves all extremities, no obvious focal deficits PSYCHIATRIC: Normal affect, normal mood. Stable SKIN: No ulcerations or rashes, good skin turgor, no jaundice VASCULAR: Good capillary refill, neurovascular bundle appears to be intact General: Alert, Oriented X3, Cooperative, No acute distress Heart: Regular rate Lungs: Clear Abdomen: Normal bowel sounds, Soft, No hepatosplenomegaly Extremities: No cyanosis, Other (MODERATE DIFFUSE ST SWELLING OF WHOLE LEFT LEG) Labs LABS Laboratory Tests Test 08/01/20 18:35 08/02/20 07:05 Vancomycin Level Trough 12.4 mcg/mL (10.0-20.0) Vancomycin Last Dose Date 08-01-20 Vancomycin Last Dose Time 0700 White Blood Count 7.5 x10^3/uL (4.0-11.0) Red Blood Count 4.60 x10^6/uL (4.30-5.70) Hemoglobin 11.7 g/dL (13.0-17.5) Hematocrit 35.8 % (39.0-53.0) Mean Corpuscular Volume 78 fL (79-100) Mean Corpuscular Hemoglobin 26 pg (25-35) Mean Corpuscular Hemoglobin Concent 33 g/dL (31-37) Red Cell Distribution Width 16.6 % (11.5-14.5) Platelet Count 428 x10^3/uL (140-400) Neutrophils (%) (Auto) 70 % (31-73) Lymphocytes (%) (Auto) 22 % (24-48) Monocytes (%) (Auto) 6 % (0-9) Eosinophils (%) (Auto) 3 % (0-3) Basophils (%) (Auto) 0 % (0-3) Neutrophils # (Auto) 5.2 x10^3/uL (1.8-7.7) Lymphocytes # (Auto) 1.6 x10^3/uL (1.0-4.8) Monocytes # (Auto) 0.4 x10^3/uL (0.0-1.1) Eosinophils # (Auto) 0.2 x10^3/uL (0.0-0.7) Basophils # (Auto) 0.0 x10^3/uL (0.0-0.2) Creatinine 0.8 mg/dL (0.7-1.3) Estimated GFR (Cockcroft-Gault) 108.2 C-Reactive Protein, Quantitative 20.8 mg/L (0-3.3) Comment Review of Relevant I have reviewed the following items lucio (where applicable) has been applied. Labs Laboratory Tests Test 08/01/20 06:45 08/01/20 06:48 08/01/20 18:35 08/02/20 07:05 Sodium Level 136 mmol/L (136-145) Potassium Level 4.0 mmol/L (3.5-5.1) Chloride Level 101 mmol/L (98-107) Carbon Dioxide Level 27 mmol/L (21-32) Anion Gap 8 (6-14) Blood Urea Nitrogen 9 mg/dL (8-26) Creatinine 0.7 mg/dL (0.7-1.3) 0.8 mg/dL (0.7-1.3) Estimated GFR (Cockcroft-Gault) 126.2 108.2 Glucose Level 95 mg/dL (70-99) Calcium Level 8.8 mg/dL (8.5-10.1) Vancomycin Level Trough 29.6 mcg/mL (10.0-20.0) 12.4 mcg/mL (10.0-20.0) Vancomycin Last Dose Date 07/31/20 08-01-20 Vancomycin Last Dose Time 1900 0700 White Blood Count 7.3 x10^3/uL (4.0-11.0) 7.5 x10^3/uL (4.0-11.0) Red Blood Count 4.53 x10^6/uL (4.30-5.70) 4.60 x10^6/uL (4.30-5.70) Hemoglobin 11.6 g/dL (13.0-17.5) 11.7 g/dL (13.0-17.5) Hematocrit 35.5 % (39.0-53.0) 35.8 % (39.0-53.0) Mean Corpuscular Volume 78 fL (79-100) 78 fL (79-100) Mean Corpuscular Hemoglobin 26 pg (25-35) 26 pg (25-35) Mean Corpuscular Hemoglobin Concent 33 g/dL (31-37) 33 g/dL (31-37) Red Cell Distribution Width 16.8 % (11.5-14.5) 16.6 % (11.5-14.5) Platelet Count 452 x10^3/uL (140-400) 428 x10^3/uL (140-400) Neutrophils (%) (Auto) 68 % (31-73) 70 % (31-73) Lymphocytes (%) (Auto) 22 % (24-48) 22 % (24-48) Monocytes (%) (Auto) 6 % (0-9) 6 % (0-9) Eosinophils (%) (Auto) 3 % (0-3) 3 % (0-3) Basophils (%) (Auto) 1 % (0-3) 0 % (0-3) Neutrophils # (Auto) 5.0 x10^3/uL (1.8-7.7) 5.2 x10^3/uL (1.8-7.7) Lymphocytes # (Auto) 1.6 x10^3/uL (1.0-4.8) 1.6 x10^3/uL (1.0-4.8) Monocytes # (Auto) 0.4 x10^3/uL (0.0-1.1) 0.4 x10^3/uL (0.0-1.1) Eosinophils # (Auto) 0.2 x10^3/uL (0.0-0.7) 0.2 x10^3/uL (0.0-0.7) Basophils # (Auto) 0.0 x10^3/uL (0.0-0.2) 0.0 x10^3/uL (0.0-0.2) C-Reactive Protein, Quantitative 20.8 mg/L (0-3.3) Laboratory Tests Test 08/01/20 18:35 08/02/20 07:05 Vancomycin Level Trough 12.4 mcg/mL (10.0-20.0) Vancomycin Last Dose Date 08-01-20 Vancomycin Last Dose Time 0700 White Blood Count 7.5 x10^3/uL (4.0-11.0) Red Blood Count 4.60 x10^6/uL (4.30-5.70) Hemoglobin 11.7 g/dL (13.0-17.5) Hematocrit 35.8 % (39.0-53.0) Mean Corpuscular Volume 78 fL (79-100) Mean Corpuscular Hemoglobin 26 pg (25-35) Mean Corpuscular Hemoglobin Concent 33 g/dL (31-37) Red Cell Distribution Width 16.6 % (11.5-14.5) Platelet Count 428 x10^3/uL (140-400) Neutrophils (%) (Auto) 70 % (31-73) Lymphocytes (%) (Auto) 22 % (24-48) Monocytes (%) (Auto) 6 % (0-9) Eosinophils (%) (Auto) 3 % (0-3) Basophils (%) (Auto) 0 % (0-3) Neutrophils # (Auto) 5.2 x10^3/uL (1.8-7.7) Lymphocytes # (Auto) 1.6 x10^3/uL (1.0-4.8) Monocytes # (Auto) 0.4 x10^3/uL (0.0-1.1) Eosinophils # (Auto) 0.2 x10^3/uL (0.0-0.7) Basophils # (Auto) 0.0 x10^3/uL (0.0-0.2) Creatinine 0.8 mg/dL (0.7-1.3) Estimated GFR (Cockcroft-Gault) 108.2 C-Reactive Protein, Quantitative 20.8 mg/L (0-3.3) Microbiology 07/31/20 Blood Culture - Preliminary, Resulted NO GROWTH AFTER 2 DAYS Medications Current Medications Sennosides (Senna) 17.2 mg PRN BID PRN PO CONSTIPATION; Start 07/30/20 at 15:45 Docusate Sodium (Colace) 100 mg PRN DAILY PRN PO HARD STOOLS; Start 07/30/20 at 15:45 Ondansetron HCl (Zofran) 4 mg PRN Q6HRS PRN IVP NAUSEA/VOMITING; Start 07/30/20 at 15:45 Dextrose (Dextrose 50%-Water Syringe) 12.5 gm PRN Q15MIN PRN IV SEE COMMENTS; Start 07/30/20 at 15:45 Acetaminophen (Tylenol) 650 mg PRN Q4HRS PRN PO TEMP OVER 100.4F OR MILD PAIN; Start 07/30/20 at 15:45; Stop 08/01/20 at 17:31; Status DC Vancomycin HCl (Vanco Per Pharmacy) 1 each PRN DAILY PRN MC SEE COMMENTS Last administered on 08/01/20at 20:07; Start 07/30/20 at 15:45 Acetaminophen/ Hydrocodone Bitart (Lortab 5/325) 1 tab PRN Q4HRS PRN PO MILD PAIN 1-3; Start 07/30/20 at 15:45; Status Cancel Morphine Sulfate (Morphine Sulfate) 1 mg PRN Q1HR PRN IV PAIN MILD TO MOD; Start 07/30/20 at 15:45 Morphine Sulfate (Morphine Sulfate) 2 mg PRN Q2HR PRN IV SEVERE PAIN 7-10; Start 07/30/20 at 04:00; Stop 07/31/20 at 03:59; Status DC Vancomycin HCl 2 gm/Sodium Chloride 500 ml @ 250 mls/hr 1X ONCE IV Last administered on 07/30/20at 18:57; Start 07/30/20 at 16:30; Stop 07/30/20 at 18:29; Status DC Apixaban (Eliquis) 2.5 mg BID PO Last administered on 08/02/20at 09:00; Start 07/30/20 at 21:00 Info (Anti-Coagulation Monitoring By Pharmacy) 1 each PRN DAILY PRN MC SEE COMMENTS Last administered on 08/02/20at 13:09; Start 07/30/20 at 16:00 Vancomycin HCl 2 gm/Sodium Chloride 500 ml @ 250 mls/hr Q12H IV Last administered on 08/02/20at 05:43; Start 07/31/20 at 07:00 Vancomycin HCl (Vancomycin Trough Level) 1 each 1X ONCE MC Last administered on 08/01/20at 06:30; Start 08/01/20 at 06:30; Stop 08/01/20 at 06:31; Status DC Lisinopril (Prinivil) 2.5 mg [id number] PO Last administered on 08/02/20at 09:00; Start 07/31/20 at 16:30 Vancomycin HCl (Vancomycin Trough Level) 1 each 1X ONCE MC Last administered on 08/01/20at 18:30; Start 08/01/20 at 18:30; Stop 08/01/20 at 18:31; Status DC Lactobacillus Rhamnosus (Culturelle) 1 cap BID PO Last administered on 08/02/20at 09:00; Start 08/01/20 at 21:00 Acetaminophen (Tylenol) 500 mg PRN Q4HRS PRN PO FEVER; Start 08/01/20 at 17:30 Amlodipine Besylate (Norvasc) 10 mg DAILY PO Last administered on 08/02/20at 09:00; Start 08/01/20 at 18:00 Iohexol (Omnipaque 240 Mg/ml) 50 ml 1X ONCE PO Last administered on 08/02/20at 08:00; Start 08/02/20 at 08:00; Stop 08/02/20 at 08:01; Status DC Info (CONTRAST GIVEN -- Rx MONITORING) 1 each PRN DAILY PRN MC SEE COMMENTS; Start 08/02/20 at 08:00; Stop 08/04/20 at 07:59 Active Scripts Active Reported Acetaminophen 500 Mg Tablet 1 Tab PO PRN Q4HRS PRN 15 Days Amlodipine Besylate 10 Mg Tablet 10 Mg PO DAILY Eliquis (Apixaban) 2.5 Mg Tablet 2.5 Mg PO BID Vitals/I & O Vital Sign - Last 24 Hours 08/01/20 08/01/20 08/01/20 08/01/20 15:00 16:36 19:00 20:00 Temp 97.9 97.5 97.9 97.5 Pulse 72 72 82 Resp 18 18 B/P (MAP) 142/74 (96) 142/74 156/80 (105) Pulse Ox 94 91 O2 Delivery Room Air Room Air Room Air 08/01/20 08/02/20 08/02/20 08/02/20 23:00 03:00 07:21 08:00 Temp 97.6 97.8 97.8 97.6 97.8 97.8 Pulse 71 73 74 Resp 18 18 18 B/P (MAP) 149/67 (94) 157/71 (99) 165/76 (105) Pulse Ox 93 91 90 O2 Delivery Room Air Room Air Room Air Room Air 08/02/20 08/02/20 08/02/20 09:00 09:00 11:20 Temp 98.6 98.6 Pulse 74 74 74 Resp 18 B/P (MAP) 165/76 165/76 163/69 (100) Pulse Ox 93 O2 Delivery Room Air Intake and Output 08/01/20 08/01/20 08/02/20 15:00 23:00 07:00 Intake Total 200 ml Balance 200 ml Justicifation of Admission Dx: Justifications for Admission: Justification of Admission Dx: Yes Cellulitis: Cellulitis CAROLINA ÁLVAREZ MD Aug 02, 2020 13:14
--- NOTE | 2020-08-02 13:24 | PDOC ---
Infectious Disease Note Vital Sign Vital Signs Vital Signs Date Time Temp Pulse Resp B/P (MAP) Pulse Ox O2 Delivery O2 Flow Rate FiO2 08/02/20 11:20 98.6 74 18 163/69 (100) 93 Room Air 98.6 Physical Exam PHYSICAL EXAM Physcial Exam: GEN: No apparent distress. Alert and oriented HEENT: Normal cephalic, atraumatic, external auditory canals are patent EYES: Extraocular muscles are intact, pupil are equally round and reactive to light and accommodation MUSCULOSKELETAL: Well developed , well nourished, good range of motion ENDOCRINE: No thyromegaly was palpated LYMPHATICS: No cervical chain or axillary nodes were noted HEMATOPOIETIC: No bruising NECK: Supple, no JVD, no thyromegaly was noted LUNGS: Clear to auscultation in all lung christie without rhonchi or wheezing HEART: RRR, S!, S2 present. Peripheral pulses intact, no obvious murmurs noted ABDOMEN: Soft, nontender. Positive bowel sounds, no organomegaly, normal bowel sounds EXTREMITIES: left lower leg cellulitis Negative Homans sign NEUROLOGIC: Normal speech and tone. A&O x 3, moves all extremities, no obvious focal deficits PSYCHIATRIC: Normal affect, normal mood. Stable SKIN: No ulcerations or rashes, good skin turgor, no jaundice VASCULAR: Good capillary refill, neurovascular bundle appears to be intact Labs Lab Laboratory Tests Test 08/01/20 18:35 08/02/20 07:05 Vancomycin Level Trough 12.4 mcg/mL (10.0-20.0) Vancomycin Last Dose Date 08-01-20 Vancomycin Last Dose Time 0700 White Blood Count 7.5 x10^3/uL (4.0-11.0) Red Blood Count 4.60 x10^6/uL (4.30-5.70) Hemoglobin 11.7 g/dL (13.0-17.5) Hematocrit 35.8 % (39.0-53.0) Mean Corpuscular Volume 78 fL (79-100) Mean Corpuscular Hemoglobin 26 pg (25-35) Mean Corpuscular Hemoglobin Concent 33 g/dL (31-37) Red Cell Distribution Width 16.6 % (11.5-14.5) Platelet Count 428 x10^3/uL (140-400) Neutrophils (%) (Auto) 70 % (31-73) Lymphocytes (%) (Auto) 22 % (24-48) Monocytes (%) (Auto) 6 % (0-9) Eosinophils (%) (Auto) 3 % (0-3) Basophils (%) (Auto) 0 % (0-3) Neutrophils # (Auto) 5.2 x10^3/uL (1.8-7.7) Lymphocytes # (Auto) 1.6 x10^3/uL (1.0-4.8) Monocytes # (Auto) 0.4 x10^3/uL (0.0-1.1) Eosinophils # (Auto) 0.2 x10^3/uL (0.0-0.7) Basophils # (Auto) 0.0 x10^3/uL (0.0-0.2) Creatinine 0.8 mg/dL (0.7-1.3) Estimated GFR (Cockcroft-Gault) 108.2 C-Reactive Protein, Quantitative 20.8 mg/L (0-3.3) Micro Microbiology 07/31/20 Blood Culture - Preliminary, Resulted NO GROWTH AFTER 2 DAYS Objective Assessment Cellulitis of left leg, failed outpatient doxy and Bactrim h/o DVT Morbid obesity Hypertension Plan Plan of Care DC vancomycin Start po Zyvox and ceftriaxone. Leg elevation BC neg to date Thank you [id number] Attending Co-Sign The patient was seen and interviewed as well as examined at the bedside. The chart was reviewed. Coformulated above A/P. BISMARK BARRIOS APRN Aug 02, 2020 13:24 BRENDA MARSHALL MD Aug 02, 2020 14:52
[2020-08-02] MEDS ORDERED: cefTRIAXone IV Push 1 GM VIAL. IVP SCH ×2 (14:00→15:30)
--- NOTE | 2020-08-02 14:00 | CONS ---
DATE OF CONSULTATION: 08/02/2020 This is Costa Lopez, nurse practitioner dictating for Dr. Farida Marshall, Infectious Disease. REFERRING PHYSICIAN: Dr. Barrientos. REASON FOR CONSULTATION: Cellulitis of left leg. HISTORY OF PRESENT ILLNESS: This patient is a 40-year-old morbidly obese male who has a history of DVT left lower extremity, on Eliquis and chronic lymphedema. About 2 weeks ago, he developed worsening left leg swelling and redness. He tried compression stockings and elevation with no improvement. He was treated outpatient on doxycycline and Bactrim also with little improvement. He has since been admitted and started on vancomycin. Today, the patient says his leg is feeling a little better. His leg is less swollen and he is able to walk easier. He denies fevers, chills, sweats or body aches. 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 PAST MEDICAL HISTORY: Hypertension, morbid obesity, DVT left leg, on Eliquis; chronic lymphedema. PAST SURGICAL HISTORY: No significant past surgical history. SOCIAL HISTORY: The patient was at home. He works in a warehouse. He has a dog. Denies history of smoking, alcohol or illicit drug use. FAMILY HISTORY: Noncontributory. ALLERGIES: HYDROCODONE. MEDICATIONS: Vancomycin, probiotics. Other medications are available and have been reviewed on the AUG. REVIEW OF SYSTEMS: Per HPI, otherwise all other review of systems are negative. PHYSICAL EXAMINATION: VITAL SIGNS: Temperature 98.6, blood pressure 163/69, heart rate 74, respiratory rate 18, pulse oximetry 93% on room air. GENERAL: The patient is propped up in bed, alert, no distress. HEENT: Pupils equally round and reactive. Oropharynx pink and moist. No lesions seen. NECK: Supple. LUNGS: Clear to auscultation. HEART: Normal S1, S2. ABDOMEN: Obese, soft, nontender with bowel sounds present. EXTREMITIES: Unremarkable except for mild erythema, warmth and swelling of left leg extending to the groin area. SKIN: Warm to touch or signs of generalized rash. NEUROLOGIC: Alert and answering questions appropriately. LABORATORY DATA: WBC 7.5, hemoglobin 11.7, platelets 428,000. Electrolytes unremarkable. Creatinine 0.8, glucose 95. CRP 20.8. Vancomycin trough 12.4 from 29.6. Blood cultures negative to date. Lower extremity venous Doppler sonogram showed no evidence of lower extremity DVT thrombosis; left inguinal lymphadenopathy and soft tissue edema. Abdomen/pelvis CT showed no central obstructing mass to explain left leg swelling. Lower extremity CT showed exuberant cellulitis involving the entirety of left lower extremity from foot to hip and bulky adenopathy in the groin. No abnormal soft tissue gas that would increase the likelihood of necrotizing fasciitis, but this is a clinical diagnosis and should be considered in the differential diagnosis of these findings. ASSESSMENT: 1. Cellulitis of the left leg, for which he failed outpatient doxycycline and Bactrim. 2. History of deep venous thrombosis. 3. Morbid obesity. 4. Hypertension. PLAN: 1. Recommend discontinuing the vancomycin. 2. Start oral Zyvox and ceftriaxone. 3. Leg elevation. 4. Follow up on blood cultures. 5. Supportive care. Thank you, Dr. Barrientos, for asking us to participate in this patient's care. Should you have further questions or concerns, please call. The patient was seen and interviewed as well as examined at the bedside. The chart was reviewed. Coformulated above A/P. FARIDA MARSHALL MD DR: WANDER/dereck JOB#: [id number] / [id number] TONI
[2020-08-02 14:53] VITALS: BP 150/73
[2020-08-02] MEDS: cefTRIAXone IV Push 2 GM VIAL. IVP SCH (17:06)
[2020-08-02 19:00] VITALS: BP 145/77
[2020-08-02] MEDS: LINEZOLID 600 MG TABLET PO SCH (20:20)
[2020-08-02 23:00] VITALS: BP 152/72
[2020-08-03 03:00] VITALS: BP 147/82
[2020-08-03] MEDS: amLODIPine BESYLATE 10 MG TABLET PO SCH (09:00)
[2020-08-03] MEDS: LINEZOLID 600 MG TABLET PO SCH ×2 (09:00→21:07)
[2020-08-03] MEDS: LISINOPRIL 5 MG TABLET. PO SCH ×2 (09:00→15:42)
[2020-08-03] MEDS: APIXABAN 2.5 MG TABLET. PO SCH ×2 (09:00→21:07)
[2020-08-03] MEDS: LACTOBACILLUS RHAMNOSUS GG 1 CAPSULE. PO SCH ×2 (09:00→21:07)
[2020-08-03 10:08] LABS: CREATININE 0.9 mg/dL (0.7-1.3); GFR 94.4
--- NOTE | 2020-08-03 13:41 | PDOC ---
Infectious Disease Note Subjective: Subjective Patient feels better Redness and swelling in the left lower extremity is improving though slowly Denies any fever, chills, nausea, vomiting, diarrhea, abdominal pain Vital Signs: Vital Signs Vital Signs Date Time Temp Pulse Resp B/P (MAP) Pulse Ox O2 Delivery O2 Flow Rate FiO2 08/03/20 03:00 98.4 69 18 147/82 (103) 92 Room Air 98.4 Physical Exam: PHYSICAL EXAM GENERAL: The patient is propped up in bed, alert, no distress. HEENT: Pupils equally round and reactive. Oropharynx pink and moist. No lesions seen. NECK: Supple. LUNGS: Clear to auscultation. HEART: Normal S1, S2. ABDOMEN: Obese, soft, nontender with bowel sounds present. EXTREMITIES: Unremarkable except for mild erythema, warmth and swelling of left leg extending to the groin area. SKIN: Warm to touch or signs of generalized rash. NEUROLOGIC: Alert and answering questions appropriately. Medications: Inpatient Meds: Medications reviewed. Labs: Lab Laboratory Tests Test 08/03/20 09:25 Creatinine 0.9 mg/dL (0.7-1.3) Estimated GFR (Cockcroft-Gault) 94.4 Objective: Assessment: 1. Cellulitis of the left leg, for which he failed outpatient doxycycline and Bactrim. 2. History of deep venous thrombosis. 3. Morbid obesity. 4. Hypertension. Plan: Plan of Care Cont Zyvox and ceftriaxone. Encouraged Leg elevation BC neg D/W BRENDA HOWARD MD Aug 03, 2020 13:41
--- NOTE | 2020-08-03 14:49 | PDOC ---
PROGRESS NOTES Date of Service: DATE: 08/03/20 TIME: 14:49 Chief Complaint Chief Complaint ssessment/Plan Assessment/Plan Acute left lower extremity cellulitis, failed outpatient p.o. antibiotics Chronic lymphedema in the left lower extremity Morbid obesity hypertension plan Admit to medicine ct left leg ID CONSULT Continue empiric IV antibiotics, VANC Pending blood cultures PT OT Lymphedema evaluation by Occupational Therapy Will hold amlodipine due to causes of peripheral edema Eliquis for DVT prophylaxis Cardiac diet Full code Discussed with RN Disposition inpatient management as above Surrogate decision maker is the History of Present Illness History of Present Illness 08/03, he was seen by OT and OT lymph yesterday, pain better, swelling better, redness better, ID consult would like one more day IV abx, plan DC Dylon is a 40-year-old male with left leg lymphedema after DVT rupture, and amdit with acute left lower extremity cellulitis. Patient has been treated with doxycycline and Bactrim for at least 2 weeks and has failed. doing better here with IV vanco, need OT lymph therapy obese, and poor lymph drainage Vitals Vitals Vital Signs Date Time Temp Pulse Resp B/P (MAP) Pulse Ox O2 Delivery O2 Flow Rate FiO2 08/03/20 09:00 72 155/89 08/03/20 03:00 98.4 18 92 Room Air 98.4 Physical Exam Physical Exam GENERAL: The patient is propped up in bed, alert, no distress. HEENT: Pupils equally round and reactive. Oropharynx pink and moist. No lesions seen. NECK: Supple. LUNGS: Clear to auscultation. HEART: Normal S1, S2. ABDOMEN: Obese, soft, nontender with bowel sounds present. EXTREMITIES: Unremarkable except for mild erythema, warmth and swelling of left leg extending to the groin area. SKIN: Warm to touch or signs of generalized rash. NEUROLOGIC: Alert and answering questions appropriately. General: Alert, Oriented X3, Cooperative, No acute distress Heart: Regular rate Lungs: Clear Abdomen: Normal bowel sounds, Soft, No hepatosplenomegaly Extremities: No cyanosis, Other (MODERATE DIFFUSE ST SWELLING OF WHOLE LEFT LEG) Labs LABS Laboratory Tests Test 08/03/20 09:25 Creatinine 0.9 mg/dL (0.7-1.3) Estimated GFR (Cockcroft-Gault) 94.4 Comment Review of Relevant I have reviewed the following items lucio (where applicable) has been applied. Labs Laboratory Tests Test 08/01/20 18:35 08/02/20 07:05 08/03/20 09:25 Vancomycin Level Trough 12.4 mcg/mL (10.0-20.0) Vancomycin Last Dose Date 08-01-20 Vancomycin Last Dose Time 0700 White Blood Count 7.5 x10^3/uL (4.0-11.0) Red Blood Count 4.60 x10^6/uL (4.30-5.70) Hemoglobin 11.7 g/dL (13.0-17.5) Hematocrit 35.8 % (39.0-53.0) Mean Corpuscular Volume 78 fL (79-100) Mean Corpuscular Hemoglobin 26 pg (25-35) Mean Corpuscular Hemoglobin Concent 33 g/dL (31-37) Red Cell Distribution Width 16.6 % (11.5-14.5) Platelet Count 428 x10^3/uL (140-400) Neutrophils (%) (Auto) 70 % (31-73) Lymphocytes (%) (Auto) 22 % (24-48) Monocytes (%) (Auto) 6 % (0-9) Eosinophils (%) (Auto) 3 % (0-3) Basophils (%) (Auto) 0 % (0-3) Neutrophils # (Auto) 5.2 x10^3/uL (1.8-7.7) Lymphocytes # (Auto) 1.6 x10^3/uL (1.0-4.8) Monocytes # (Auto) 0.4 x10^3/uL (0.0-1.1) Eosinophils # (Auto) 0.2 x10^3/uL (0.0-0.7) Basophils # (Auto) 0.0 x10^3/uL (0.0-0.2) Creatinine 0.8 mg/dL (0.7-1.3) 0.9 mg/dL (0.7-1.3) Estimated GFR (Cockcroft-Gault) 108.2 94.4 C-Reactive Protein, Quantitative 20.8 mg/L (0-3.3) Laboratory Tests Test 08/03/20 09:25 Creatinine 0.9 mg/dL (0.7-1.3) Estimated GFR (Cockcroft-Gault) 94.4 Microbiology 07/31/20 Blood Culture - Preliminary, Resulted NO GROWTH AFTER 3 DAYS Medications Current Medications Sennosides (Senna) 17.2 mg PRN BID PRN PO CONSTIPATION; Start 07/30/20 at 15:45 Docusate Sodium (Colace) 100 mg PRN DAILY PRN PO HARD STOOLS; Start 07/30/20 at 15:45 Ondansetron HCl (Zofran) 4 mg PRN Q6HRS PRN IVP NAUSEA/VOMITING; Start 07/30/20 at 15:45 Dextrose (Dextrose 50%-Water Syringe) 12.5 gm PRN Q15MIN PRN IV SEE COMMENTS; Start 07/30/20 at 15:45 Acetaminophen (Tylenol) 650 mg PRN Q4HRS PRN PO TEMP OVER 100.4F OR MILD PAIN; Start 07/30/20 at 15:45; Stop 08/01/20 at 17:31; Status DC Vancomycin HCl (Vanco Per Pharmacy) 1 each PRN DAILY PRN MC SEE COMMENTS Last administered on 08/01/20at 20:07; Start 07/30/20 at 15:45; Stop 08/02/20 at 13:15; Status DC Acetaminophen/ Hydrocodone Bitart (Lortab 5/325) 1 tab PRN Q4HRS PRN PO MILD PAIN 1-3; Start 07/30/20 at 15:45; Status Cancel Morphine Sulfate (Morphine Sulfate) 1 mg PRN Q1HR PRN IV PAIN MILD TO MOD; Start 07/30/20 at 15:45 Morphine Sulfate (Morphine Sulfate) 2 mg PRN Q2HR PRN IV SEVERE PAIN 7-10; Start 07/30/20 at 04:00; Stop 07/31/20 at 03:59; Status DC Vancomycin HCl 2 gm/Sodium Chloride 500 ml @ 250 mls/hr 1X ONCE IV Last administered on 07/30/20at 18:57; Start 07/30/20 at 16:30; Stop 07/30/20 at 18 :29; Status DC Apixaban (Eliquis) 2.5 mg BID PO Last administered on 08/03/20at 09:00; Start 07/30/20 at 21:00 Info (Anti-Coagulation Monitoring By Pharmacy) 1 each PRN DAILY PRN MC SEE COMMENTS Last administered on 08/02/20at 13:09; Start 07/30/20 at 16:00 Vancomycin HCl 2 gm/Sodium Chloride 500 ml @ 250 mls/hr Q12H IV Last administered on 08/02/20at 05:43; Start 07/31/20 at 07:00; Stop 08/02/20 at 13:15; Status DC Vancomycin HCl (Vancomycin Trough Level) 1 each 1X ONCE MC Last administered on 08/01/20at 06:30; Start 08/01/20 at 06:30; Stop 08/01/20 at 06:31; Status DC Lisinopril (Prinivil) 2.5 mg BID94 PO Last administered on 08/03/20at 09:00; Start 07/31/20 at 16:30 Vancomycin HCl (Vancomycin Trough Level) 1 each 1X ONCE MC Last administered on 08/01/20at 18:30; Start 08/01/20 at 18:30; Stop 08/01/20 at 18:31; Status DC Lactobacillus Rhamnosus (Culturelle) 1 cap BID PO Last administered on 08/03/20at 09:00; Start 08/01/20 at 21:00 Acetaminophen (Tylenol) 500 mg PRN Q4HRS PRN PO FEVER; Start 08/01/20 at 17:30 Amlodipine Besylate (Norvasc) 10 mg DAILY PO Last administered on 08/03/20at 09:00; Start 08/01/20 at 18:00 Iohexol (Omnipaque 240 Mg/ml) 50 ml 1X ONCE PO Last administered on 08/02/20at 08:00; Start 08/02/20 at 08:00; Stop 08/02/20 at 08:01; Status DC Info (CONTRAST GIVEN -- Rx MONITORING) 1 each PRN DAILY PRN MC SEE COMMENTS; Start 08/02/20 at 08:00; Stop 08/04/20 at 07:59 Ceftriaxone Sodium (Rocephin) 1 gm Q24H IVP ; Start 08/02/20 at 14:00; Stop 08/02/20 at 15:16; Status DC Linezolid (Zyvox) 600 mg BID PO Last administered on 08/03/20at 09:00; Start 08/02/20 at 21:00 Ceftriaxone Sodium (Rocephin) 2 gm Q24H IVP ; Start 08/02/20 at 15:30; Stop 08/02/20 at 15:17; Status DC Ceftriaxone Sodium (Rocephin) 2 gm Q24H IVP Last administered on 08/02/20at 17:06; Start 08/02/20 at 15:30 Active Scripts Active Reported Acetaminophen 500 Mg Tablet 1 Tab PO PRN Q4HRS PRN 15 Days Amlodipine Besylate 10 Mg Tablet 10 Mg PO DAILY Eliquis (Apixaban) 2.5 Mg Tablet 2.5 Mg PO BID Vitals/I & O Vital Sign - Last 24 Hours 08/02/20 08/02/20 08/02/20 08/02/20 14:53 17:09 19:00 20:00 Temp 98.6 98.6 98.6 98.6 Pulse 77 77 73 Resp 18 18 B/P (MAP) 150/73 (98) 150/73 145/77 (99) Pulse Ox 94 92 O2 Delivery Room Air Room Air Room Air 08/02/20 08/03/20 08/03/20 08/03/20 23:00 03:00 09:00 09:00 Temp 98.4 98.4 98.4 98.4 Pulse 72 69 72 72 Resp 18 18 B/P (MAP) 152/72 (98) 147/82 (103) 155/89 155/89 Pulse Ox 93 92 O2 Delivery Room Air Room Air Justicifation of Admission Dx: Justifications for Admission: Justification of Admission Dx: Yes Cellulitis: Cellulitis CAROLINA ÁLVAREZ MD Aug 03, 2020 14:49
[2020-08-03 15:00] VITALS: BP 157/79
[2020-08-03] MEDS: cefTRIAXone IV Push 2 GM VIAL. IVP SCH (15:42)
[2020-08-03 19:00] VITALS: BP 150/82
[2020-08-03 23:00] VITALS: BP 150/71
[2020-08-04 03:00] VITALS: BP 138/61
[2020-08-04 07:09] VITALS: BP 153/75
[2020-08-04] MEDS: LINEZOLID 600 MG TABLET PO SCH (09:23)
[2020-08-04] MEDS: APIXABAN 2.5 MG TABLET. PO SCH (09:23)
[2020-08-04] MEDS: LACTOBACILLUS RHAMNOSUS GG 1 CAPSULE. PO SCH (09:23)
[2020-08-04] MEDS: LISINOPRIL 5 MG TABLET. PO SCH (09:23)
[2020-08-04] MEDS: amLODIPine BESYLATE 10 MG TABLET PO SCH (09:24)
--- NOTE | 2020-08-04 09:35 | NUR ---
SW following. Discussed with RN, pt from home with family, room air, cardiac diet. Lymphedema OT visiting with pt today. ID wanted one more day of IV abx yesterday. Dr. Mcqueen planning on discharging pt home today. MIKE will continue to follow.
[2020-08-04 10:43] VITALS: BP 176/79
--- NOTE | 2020-08-04 12:19 | PDOC ---
Infectious Disease Note Subjective Subjective Patient now has compresion wrap in place. He reports the swelling and redness have improved. He is hoping to go home soon. Denies any fever, chills, nausea, vomiting, diarrhea, abdominal pain ROS ROS as mentioned above Vital Sign Vital Signs Vital Signs Date Time Temp Pulse Resp B/P (MAP) Pulse Ox O2 Delivery O2 Flow Rate FiO2 08/04/20 10:43 98.6 80 18 176/79 (111) 93 Room Air 98.6 Physical Exam PHYSICAL EXAM GENERAL: Propped up in bed, alert, smiling HEENT: Oropharynx pink and moist. No lesions seen. NECK: Supple. LUNGS: Clear to auscultation. HEART: Normal S1, S2. ABDOMEN: Obese, soft, nontender with bowel sounds present. EXTREMITIES: LLE compression wrap in place. The thigh is less indurated, + wrinkles. SKIN: Warm to touch or signs of generalized rash. NEUROLOGIC: Alert and answering questions appropriately. PIV Labs Micro Microbiology 07/31/20 Blood Culture - Preliminary, Resulted NO GROWTH AFTER 2 DAYS Objective Assessment Cellulitis of left leg, failed outpatient doxy and Bactrim h/o DVT Morbid obesity Hypertension Plan Plan of Care Zyvox and Rocephin May DC home from ID standpoint on Keflex for 7 days. Probiotics Encouraged leg elevation BC neg D/W RN Attending Co-Sign The patient was seen and interviewed as well as examined at the bedside . Coformulated above assessment and plan Work excuse given to the patient per his request. Return to hospital if symptoms worsen Discussed with nursing staff BISMARK BARRIOS APRN Aug 04, 2020 12:19 BRENDA MARSHALL MD Aug 04, 2020 13:52
[2020-08-04] MEDS ORDERED: LACT1CAP19 PO (13:38)
[2020-08-04] MEDS ORDERED: CEPH750C9 PO (13:38)
--- NOTE | 2020-08-04 13:40 | PDOC3 ---
Discharge Summary Visit Information Date of Admission: Jul 30, 2020 Date of Discharge: Aug 04, 2020 Final Diagnosis Acute left lower extremity cellulitis, failed outpatient p.o. antibiotics Chronic lymphedema in the left lower extremity Morbid obesity hypertension Brief Hospital Course Allergies Allergies Coded Allergies Type Severity Reaction Last Updated Verified hydrocodone Allergy Intermediate ibsomnia/itching 08/30/14 Yes Vital Signs Vital Signs Date Time Temp Pulse Resp B/P (MAP) Pulse Ox O2 Delivery O2 Flow Rate FiO2 08/04/20 10:43 98.6 80 18 176/79 (111) 93 Room Air 98.6 Lab Results Laboratory Tests Test 08/03/20 09:25 Creatinine 0.9 mg/dL (0.7-1.3) Estimated GFR (Cockcroft-Gault) 94.4 Brief Hospital Course Mr. Arambula is a 40 old male, obese, but with prior injury to left leg, vascular injury after DVT and rupture, now with chronic lymphedema to left leg, had redness and swelling, new cellulitis, broad abx for days, zyvox, ancef, after vanc was givne for a couple days DC on keflex Discharge Information Condition at Discharge: Improved Follow Up: Weeks Disposition/Orders: D/C to Home Scheduled Amlodipine Besylate (Amlodipine Besylate) 10 Mg Tablet, 10 MG PO DAILY for HTN, (Reported) Entered as Reported by: SHARIF CLAY on 07/30/201246 Last Action: Continued on 08/01/20 1720 by DENISSE TOMLIN MD Apixaban (Eliquis) 2.5 Mg Tablet, 2.5 MG PO BID for dvt, (Reported) Entered as Reported by: SHARIF CLAY on 07/30/201246 Last Action: Continued on 07/30/20 1550 by ELEONORA DUNCAN MD Cephalexin (Keflex) 750 Mg Capsule, 1 CAP PO BID for cellulitis for 7 Days, #14 Ref 0 Prescribed by: CAROLINA ÁLVAREZ on 08/04/20 1338 Lactobacillus Rhamnosus Gg (Culturelle) 1 Each Cap.sprink, 1 CAP PO BID for gut health, #30 Prescribed by: CAROLINA ÁLVAREZ on 08/04/20 1338 Scheduled PRN Acetaminophen (Acetaminophen) 500 Mg Tablet, 1 TAB PO PRN Q4HRS PRN for pain or fever for 15 Days, #60 Ref 0 (Reported) Entered as Reported by: SHARIF CLAY on 07/30/20 1248 Last Action: Continued on 08/01/20 1720 by DENISSE TOMLIN MD Justicifation of Admission Dx: Justifications for Admission: Justification of Admission Dx: Yes Cellulitis: Cellulitis CAROLINA ÁLVAREZ MD Aug 04, 2020 13:40
--- NOTE | 2020-08-04 14:25 | NUR ---
Patient discharge home today with self care via wheelchair accompanied by aid and family members. Patient is stable, IV removed, prescriptions and discharge paperwork given to patient. Patient verbalized understanding of follow up and discharge instruction.
== END 2020-08-04 15:43 | disposition home or self-care (01) | DRG 603 ==
LOC: 4 NORTH 12:09
PROVIDERS: ADMIT Internal Medicine; ATTEND Internal Medicine
DX: L03.116 Cellulitis of left lower limb (principal); Z68.42 Body mass index [BMI] 45.0-49.9, adult; I89.0 Lymphedema, not elsewhere classified; I10 Essential (primary) hypertension; E66.01 Morbid (severe) obesity due to excess calories; Z79.01 Long term (current) use of anticoagulants; Z86.718 Personal history of other venous thrombosis and embolism; Z79.899 Other long term (current) drug therapy; Z88.5 Allergy status to narcotic agent
CPT/HCPCS: 36415; 73700; 74176; 80048; 80202; 82565; 83735; 84100; 85025; 86140; 87040; 93970; J0696; J3370; J7040; Q9966; 97535-GO; G0378

== ENCOUNTER → 2021-05-18 | Outpatient (CLI) | payer BC ==
[~2021-05-18] MED LIST changes: +ACET500T68 PO; +AMLO-187 PO; +APIX2.5T PO; +CEPH750C9 PO; +LACT1CAP19 PO; -MORPHINE SULFATE 4 MG/ML VIAL. IV PRN
[2021-05-25 07:00] LABS: CARDIOLIPIN ANTIBODIES SEE SEPARATE REPORT; LUPUS ANTICOAGULANT SEE SEPARATE REPORT
== END ==
LOC: ONCLAB 12:51
PROVIDERS: ATTEND Internal Medicine Hematology & Oncology
DX: I82.402 Acute embolism and thrombosis of unspecified deep veins of left lower extremity (principal)
CPT/HCPCS: 36415; 85610; 86146; 86147

== ENCOUNTER 2021-08-15 07:48 | Emergency (ER) | payer BC ==
[~2021-08-15] VITALS: Ht 175.3 cm; Wt 184.3 kg
[2021-08-15] MEDS ORDERED: IOHEXOL 350 MG/ML 100 ML VIAL. IV ONE (08:30)
[2021-08-15 08:52] LABS: BASO # 0.1 x10^3/uL (0.0-0.2); BASO % 1 % (0-3); EOS # 0.3 x10^3/uL (0.0-0.7); EOS % 4 % (0-3); HEMATOCRIT 35.4 % (39.0-53.0); HEMOGLOBIN 10.4 g/dL (13.0-17.5); LYMPH # 1.3 x10^3/uL (1.0-4.8); LYMPH % 16 % (24-48); MEAN CORPUSCULAR HEMOGLOBIN 20 pg (25-35); MEAN CORPUSCULAR HGB CONC 29 g/dL (31-37); MEAN CORPUSCULAR VOLUME 69 fL (79-100); MONO # 0.6 x10^3/uL (0.0-1.1); MONO % 7 % (0-9); NEUT % 72 % (31-73); PLATELET COUNT 327 x10^3/uL (140-400); RED BLOOD COUNT 5.12 x10^6/uL (4.30-5.70); RED CELL DISTRIBUTION WIDTH 20.1 % (11.5-14.5); WHITE BLOOD COUNT 8.2 x10^3/uL (4.0-11.0)
[2021-08-15 08:54] LABS: PROTHROMBIN TIME PATIENT 15.3 SEC (11.7-14.0)
[2021-08-15 08:57] LABS: CREATININE 0.9 mg/dL (0.7-1.3); GFR 93.9; MAGNESIUM 2.1 mg/dL (1.8-2.4); POTASSIUM 4.6 mmol/L (3.5-5.1)
[2021-08-15 09:20] LABS: INFLUENZA A PATIENT NEGATIVE (NEGATIVE); INFLUENZA B PATIENT NEGATIVE (NEGATIVE)
--- NOTE | 2021-08-15 09:35 | RAD ---
CTA CHEST History: Dyspnea. History of DVT. Rule out PE. Comparison: None. Technique: CTA of the pulmonary arteries with intravenous contrast. 3-D postprocessing was performed. Findings: Pulmonary arteries: No matter embolism. Aorta and great vessels: No aneurysm or dissection of the aortic arch or thoracic aorta. Thyroid: Calcified 1.5 cm nodule left anterior thyroid. Mediastinum and cierra: Multiple prominent left upper mediastinal lymph nodes measuring up to 8 mm shor t axis. Right upper paraesophageal). Lymph node measuring 0.9 cm short axis (axial 41). Esophagus: Mildly patulous esophagus containing debris throughout the chest. Heart: The heart is normal in size. There is no pericardial effusion. Airways, Lungs, Pleura: The airways are patent. There is mild diffuse groundglass opacity. Upper abdomen: Limited evaluation of the upper abdomen is unremarkable. Osseous structures and soft tissues: Within normal limits for age. Impression: 1. No pulmonary embolism. 2. Mild diffuse groundglass opacity may represent diffuse or atypical infectious process. Findings m ay be accentuated by exhalatory technique. 3. Debris throughout the esophagus may represent reflux. Concern for aspiration risk. 4. Numerous prominent mediastinal lymph nodes measuring up to 9 mm short axis. Findings may be infec tious or inflammatory, cannot exclude lymphoproliferative for metastatic disease. Recommend 3 month f ollow-up CT of the chest with contrast. 5. Left thyroid heterogeneously calcified 1.5 cm nodule. Recommend thyroid ultrasound for further ev aluation. ------ Exposure: One or more of the following individualized dose reduction techniques were utilized for thi s examination: 1. Automated exposure control 2. Adjustment of the mA and/or kV according to patient size 3. Use of iterative reconstruction technique. Electronically signed by: Tom Sheldon MD (08/15/2021 9:33 AM) [id number]
[2021-08-15 10:52] LABS: HYPOCHROMIA MOD; PLT ESTIMATE ADEQUATE (ADEQUATE)
[2021-08-15 10:53] LABS: ANISOCYTOSIS SLIGHT
[2021-08-15 10:54] LABS: MICROCYTOSIS MOD
[2021-08-15 11:07] VITALS: BP 163/83
[2021-08-15] MEDS ORDERED: ALBU2.5V8 IH (11:16)
[2021-08-15] MEDS ORDERED: DOXY100T PO (11:16)
--- NOTE | 2021-08-15 11:16 | PHYS DOC ---
Past Medical History Past Medical History: Hypertension Past Surgical History: Other Additional Past Surgical Histo: testicle (as child) Smoking Status: Never Smoker Alcohol Use: None Drug Use: None Adult General Chief Complaint Chief Complaint: SHORTNESS OF BREATH HPI HPI Patient is a 41 year old male with dyspnea that started this morning. The patient has a known history of DVT in the right lower extremity for which she takes Eliquis. He says has not missed any doses recently. He has had a mild nonproductive cough. He denies any chest pain or dyspnea at rest. No fever that he is aware of. No sick contacts. No recent trauma. Review of Systems Review of Systems Constitutional: Denies fever Eyes: Denies change in visual acuity or eye pain HENT: Denies sore throat Respiratory: Reports shortness of breath Cardiovascular: Denies chest pain GI: Denies abd pain : Denies dysuria Musculoskeletal: Denies back or extremity injury Integument: Denies rash or skin lesions Neurologic: Denies headache, focal weakness or sensory changes All other systems were reviewed and found to be within normal limits, except as documented in this note. Current Medications Current Medications Current Medications Medications (Trade) Dose Ordered Sig/Matthew Start Time Stop Time Status Last Admin Dose Admin Iohexol (Omnipaque 350 Mg/ml) 100 ml 1X ONCE 08/15/21 08:30 08/15/21 08:31 DC 08/15/21 08:30 100 ML Allergies Allergies Allergies Coded Allergies Type Severity Reaction Last Updated Verified hydrocodone Allergy Intermediate ibsomnia/itching 08/15/21 Yes Physical Exam Physical Exam Constitutional: Well developed, well nourished, no acute distress, non-toxic appearance. HENT: Normocephalic, atraumatic, bilateral external ears normal, mucosa moist, nose normal. Eyes: EOMI, conjunctiva normal, no discharge. Neck: Normal range of motion, supple, no stridor, no meningeal signs. Cardiovascular: Regular rate and rhythm Lungs & Thorax: Bilateral breath sounds clear to auscultation Abdomen: Soft, no tenderness or obvious masses Skin: Warm, dry, no erythema, no rash. Extremities: No tenderness, no cyanosis, no clubbing, ROM intact, right lower ex tremity erythema plus edema. Neurologic: Alert and oriented, normal motor function, normal sensory function, no focal deficits noted. Psychologic: Affect normal, judgement normal, mood normal. Current Patient Data Vital Signs Vital Signs Date Time Temp Pulse Resp B/P (MAP) Pulse Ox O2 Delivery O2 Flow Rate FiO2 08/15/21 11:07 82 16 163/83 (109) 97 Nasal Cannula 2.0 08/15/21 07:48 98.5 98.5 Lab Values Laboratory Tests Test 08/15/21 08:30 08/15/21 08:55 White Blood Count 8.2 x10^3/uL (4.0-11.0) Red Blood Count 5.12 x10^6/uL (4.30-5.70) Hemoglobin 10.4 g/dL (13.0-17.5) L Hematocrit 35.4 % (39.0-53.0) L Mean Corpuscular Volume 69 fL (79-100) L Mean Corpuscular Hemoglobin 20 pg (25-35) L Mean Corpuscular Hemoglobin Concent 29 g/dL (31-37) L Red Cell Distribution Width 20.1 % (11.5-14.5) H Platelet Count 327 x10^3/uL (140-400) Neutrophils (%) (Auto) 72 % (31-73) Lymphocytes (%) (Auto) 16 % (24-48) L Monocytes (%) (Auto) 7 % (0-9) Eosinophils (%) (Auto) 4 % (0-3) H Basophils (%) (Auto) 1 % (0-3) Neutrophils # (Auto) 6.0 x10^3/uL (1.8-7.7) Lymphocytes # (Auto) 1.3 x10^3/uL (1.0-4.8) Monocytes # (Auto) 0.6 x10^3/uL (0.0-1.1) Eosinophils # (Auto) 0.3 x10^3/uL (0.0-0.7) Basophils # (Auto) 0.1 x10^3/uL (0.0-0.2) Platelet Estimate Adequate (ADEQUATE) Hypochromasia Mod Anisocytosis Slight Microcytosis Mod Prothrombin Time 15.3 SEC (11.7-14.0) H Prothrombin Time INR 1.2 (0.8-1.1) H Activated Partial Thromboplast Time 33 SEC (24-38) Sodium Level 141 mmol/L (136-145) Potassium Level 4.6 mmol/L (3.5-5.1) Chloride Level 103 mmol/L (98-107) Carbon Dioxide Level 31 mmol/L (21-32) Anion Gap 7 (6-14) Blood Urea Nitrogen 17 mg/dL (8-26) Creatinine 0.9 mg/dL (0.7-1.3) Estimated GFR (Cockcroft-Gault) 93.9 Glucose Level 133 mg/dL (70-99) H Calcium Level 8.0 mg/dL (8.5-10.1) L Magnesium Level 2.1 mg/dL (1.8-2.4) Troponin I High Sensitivity 19 ng/L (4-75) Influenza Type A Antigen Negative (NEGATIVE) Influenza Type B Antigen Negative (NEGATIVE) SARS-CoV-2 Antigen (Rapid) Negative (NEGATIVE) Laboratory Tests 08/15/21 08:30 Laboratory Tests 08/15/21 08:30 EKG EKG Twelve-lead EKG demonstrates sinus rhythm with a rate of 85. MN, QRS and QT corrected are within normal limits other than a borderline QRS [address] segment elevation or depression. Q-wave present in inferior lead III. T waves inverted in V1 through V3 with slow R wave progression. [] Radiology/Procedures Radiology/Procedures [] Impressions: PATIENT: JED MORENO AACCOUNT: [id number]#: [id number] : 1980 LOCATION: ER AGE: 41 SEX: M EXAM STATUS: REG ER ORD. PHYSICIAN: CACHORRO REDDY MD REASON: dyspnea h/o dvt PROCEDURE: CT ANGIOGRAPHY CHEST CTA CHEST History: Dyspnea. History of DVT. Rule out PE. Comparison: None. Technique: CTA of the pulmonary arteries with intravenous contrast. 3-D postprocessing was performed. Findings: Pulmonary arteries: No matter embolism. Aorta and great vessels: No aneurysm or dissection of the aortic arch or thoracic aorta. Thyroid: Calcified 1.5 cm nodule left anterior thyroid. Mediastinum and cierra: Multiple prominent left upper mediastinal lymph nodes measuring up to 8 mm short axis. Right upper paraesophageal). Lymph node measuring 0.9 cm short axis (axial 41). Esophagus: Mildly patulous esophagus containing debris throughout the chest. Heart: The heart is normal in size. There is no pericardial effusion. Airways, Lungs, Pleura: The airways are patent. There is mild diffuse groundglass opacity. Upper abdomen: Limited evaluation of the upper abdomen is unremarkable. Osseous structures and soft tissues: Within normal limits for age. Impression: 1. No pulmonary embolism. 2. Mild diffuse groundglass opacity may represent diffuse or atypical infectious process. Findings may be accentuated by exhalatory technique. 3. Debris throughout the esophagus may represent reflux. Concern for aspiration risk. 4. Numerous prominent mediastinal lymph nodes measuring up to 9 mm short axis. Findings may be infectious or inflammatory, cannot exclude lymphoproliferative for metastatic disease. Recommend 3 month follow-up CT of the chest with contrast. 5. Left thyroid heterogeneously calcified 1.5 cm nodule. Recommend thyroid ultrasound for further evaluation. ------ Exposure: One or more of the following individualized dose reduction techniques were utilized for this examination: 1. Automated exposure control 2. Adjustment of the mA and/or kV according to patient size 3. Use of iterative reconstruction technique. Electronically signed by: Tom Jasmine MD (08/15/2021 9:33 AM) [id number] DICTATED and SIGNED BY: TOM JASMINE MD DATE: 08/15/21 [id number] 0 Course & Med Decision Making Course & Med Decision Making This is a 41-year-old male with dyspnea. He is morbidly obese and has a known DVT. He is got a CT of the chest which demonstrates an atypical infiltrate appearance but no evidence of pulmonary embolus. We will start the patient on doxycycline and have him follow-up with his primary care physician. We will also give him a prescription for albuterol. He should return to the [facility] symptoms become worse or other concerns arise, he is stable for discharge at this time. [] Dragon Disclaimer Dragon Disclaimer This electronic medical record was generated, in whole or in part, using a voice recognition dictation system. Departure Departure Impression: Primary Impression: Atypical pneumonia Disposition: 01 HOME / SELF CARE / HOMELESS Condition: STABLE Referrals: JAYY CORTES (PCP) Patient Instructions: Pneumonia, Adult Scripts Albuterol Sulfate (PROAIR HFA INHALER) 8.5 Gm Hfa.aer.ad 2 PUFF IH PRN Q4-6HRS PRN for wheezing for 21 Days, #1 INHALER 0 Refills Prov: CACHORRO REDDY MD 08/15/21 Doxycycline Hyclate (DOXYCYCLINE HYCLATE) 100 Mg Tablet 1 TAB PO BID, #14 TAB Prov: CACHORRO REDDY MD 08/15/21 CACHORRO REDDY MD Aug 15, 2021 11:16
--- NOTE | 2021-08-16 07:26 | EKG ---
[facility] [address] [place] [address] Test Date: 2021-08-15 Test Time: 08:07:33 Pat Name: JED MORENO Department: Room: Gender: M Instrumentation Supervisor: : 1980 Requested By: CACHORRO REDDY Order Number: [id number] Reading MD: Bebo Cannon MD Measurements Intervals [place] Rate: 85 P: 51 IN: 180 QRS: 130 QRSD: 106 T: 56 QT: 370 QTc: 440 Interpretive Statements SINUS RHYTHM ANTERIOR ISCHEMIA Electronically Signed On 08-16-2021 11:14:18 CLINICAL STUDY MANAGER by Bebo Cannon MD
== END 2021-08-15 11:51 | disposition home or self-care (01) ==
LOC: ER 07:48
DX: J18.9 Pneumonia, unspecified organism (principal); I10 Essential (primary) hypertension; Z88.5 Allergy status to narcotic agent
CPT/HCPCS: 36415; 71275; 80048; 83735; 84484; 85025; 85610; 85730; 87428; 93005; 99285; Q9967

== ENCOUNTER → 2021-08-19 | Outpatient (CLI) | payer BC ==
[2021-08-15 11:07] VITALS: BP 163/83
[~2021-08-19] MED LIST changes: +ALBU2.5V8 IH; +DOXY100T PO
== END ==
LOC: ONCLAB 09:24
PROVIDERS: ATTEND Internal Medicine Hematology & Oncology
DX: I82.402 Acute embolism and thrombosis of unspecified deep veins of left lower extremity (principal)
CPT/HCPCS: 86146

== ENCOUNTER → 2021-08-29 | Outpatient (CLI) | payer BC ==
[2021-08-15 11:07] VITALS: BP 163/83
--- NOTE | 2021-08-29 10:20 | RAD ---
INDICATION: Reason: rt leg pain/swelling / Spl. Instructions: / History: COMPARISON: July 31, 2020 TECHNIQUE: Grayscale, color and doppler ultrasound images were obtained of the right lower extremity venous vasculature. RIGHT: No thrombus identified in the common femoral vein, femoral vein, popliteal vein or visualized calf ve ins. There is some limitation secondary to overlying soft tissue structures obscuring. Enlarged lymph node in the left groin measuring 76 x 21 mm. No occlusive thrombus is seen within the left common fe moral vein or superficial femoral vein with limitation for partial thrombus secondary to overlying st ructures obscuring. IMPRESSION: * No thrombus identified in deep venous system of right lower extremity. * Lymphadenopathy of the left groin is again seen. Electronically signed by: Pete Rivas MD (08/29/2021 10:18 AM) [id number]
== END ==
LOC: US 09:30
PROVIDERS: ATTEND Internal Medicine Hematology & Oncology
DX: R59.0 Localized enlarged lymph nodes (principal); I82.401 Acute embolism and thrombosis of unspecified deep veins of right lower extremity
CPT/HCPCS: 93971